=== PATIENT | male | born 1960 | race Caucasian/White ===

== ENCOUNTER → 2016-03-26 | Outpatient (CLI) | payer OTHER ==
--- NOTE | 2016-03-26 09:55 | CT ---
EXAMINATION TYPE: CT sinus wo con DATE OF EXAM: 03/26/2016 9:37 AM COMPARISON: NONE HISTORY: 55-year-old male complains of chronic sinus congestion and drainage. TECHNIQUE: Contiguous axial scanning of the paranasal sinuses without IV contrast. Coronal reconstruc tions performed. CT DLP: 635 mGycm Automated exposure control for dose reduction was used. FINDINGS: There is severe mucosal thickening within the left maxillary sinus and mild to moderate within the ri ght maxillary sinus with a polyp or mucosal retention cyst along the medial floor of the right maxill manuel sinus. Additional mild to moderate mucosal thickening involving the anterior ethmoid air cells on both sides and mild within the right sphenoid sinus. The frontal sinuses are pneumatized. There is no air-fluid level. Reactive cassandra- osteogenesis is not seen. There is no destruction of the osseous hernández of the paranasal sinuses. There is mucosal thickening in the region of the left osteomeatal complex. The right osteomeatal comp lexes is patent. Rightward nasal septal deviation. The imaged brain, sella, skull base and orbits are normal in appearance. Visualized mastoid air cells and middle ear cavities are well pneumatized. IMPRESSION: 1. MODERATE TO SEVERE CHRONIC LEFT MAXILLARY SINUS DISEASE. 2. ADDITIONAL VARIABLE MILD TO MODERATE RIGHT MAXILLARY, RIGHT SPHENOID, AND ANTERIOR ETHMOID SINUS D ISEASE. 3. RIGHTWARD NASAL SEPTAL DEVIATION.
== END | disposition home or self-care (01) ==
LOC: RADCTMAIN 09:20
PROVIDERS: ATTEND Otolaryngology
DX: J32.0 Chronic maxillary sinusitis (principal); J32.3 Chronic sphenoidal sinusitis; J32.2 Chronic ethmoidal sinusitis; J34.2 Deviated nasal septum
CPT/HCPCS: 70486

== ENCOUNTER 2016-04-29 10:29 | Day surgery (SDC) | payer OTHER ==
[2016-04-27 10:33] VITALS: BMI 23.1
[~2016-04-29 10:29] MED LIST: DEXAMETHASONE SOD PHOSPHATE 10 MG/ML 1 ML VIAL IV ONE; DEXAMETHASONE SOD PHOSPHATE 4 MG/ML 1 ML VIAL IV ONE; FAMOTIDINE 20 MG/2 ML VIAL IV ONE; HYDROmorphone 1 MG/ML 1 ML SYRINGE IVP PRN; LACTATED RINGERS 1,000 ML IV SCH; LIDOCAINE 1% 20 ML VIAL (10MG/ML) FOR IV START INTRADERMA PRN; ONDANSETRON 4 MG/2 ML VIAL IVP ONE; SCOPOLAMINE 1.5MG/72HR PATCH TRANSDERM ONE; ceFAZolin 1,000 MG in DEXTROSE/WATER 1 50ML.BAG IV ONE
[2016-04-29 11:32] VITALS: RESP 16; TEMP 97.5
[2016-04-29] MEDS: OXYMETAZOLINE 0.05% NASL SPRAY 15 ML NASAL ONE ×5 (11:34→11:53)
[2016-04-29] MEDS ORDERED: fentaNYL (PF) 50 MCG/ML 2 ML AMP ONE (13:16)
[2016-04-29] MEDS ORDERED: LIDOCAINE 1% INJ 10MG/ML (20 ML MDV) ONE (13:16)
[2016-04-29] MEDS ORDERED: PHENYLEPHRINE-0.9% NACL SYG 1 MG/10 ML SYRINGE ONE (13:16)
[2016-04-29] MEDS ORDERED: PROPOFOL 10 MG/ML 20 ML VIAL IV ONE (13:16)
[2016-04-29] MEDS ORDERED: MIDAZOLAM 2 MG/2 ML VIAL ONE (13:16)
[2016-04-29] MEDS ORDERED: SUCCINYLCHOLINE CHLORIDE 100 MG/5 ML SYR IV ONE (13:16)
[2016-04-29] MEDS ORDERED: LIDOCAINE 1%-EPI 1:100,000 20 ML VIAL SUBMUCOSAL ONE (13:45)
--- NOTE | 2016-04-29 14:47 | P.OP ---
Date of Procedure: 04/29/16 Preoperative Diagnosis: Deviated nasal septum Inferior turbinate hypertrophy Chronic sinusitis Postoperative Diagnosis: Same Procedure(s) Performed: Septoplasty Outfracture and submucous resection of the inferior turbinates Bilateral endoscopic sinus surgery including bilateral maxillary antrostomy with removal of tissue from the left maxillary sinus, bilateral anterior and posterior ethmoidectomy, balloon sinus plasty of the bilateral frontal and bilateral sphenoid sinuses with exploration Anesthesia: SOULEYMANE Surgeon: Rachid Contreras Estimated Blood Loss (ml): 20 Pathology: other (Nasal septal bone and cartilage and sinus contents) Condition: stable Disposition: PACU Indications for Procedure: Is a 55-year-old white male who has had difficulties with chronic and recurrent sinusitis as well as nasal airway obstruction and congestion as well as postnasal drainage. Computed tomography scan showed chronic sinusitis diffusely but most significantly in the left maxillary sinus, obstruction the ostiomeatal complexes bilaterally, mucosal thickening in the maxillary sinuses, ethmoid sinuses frontal and sphenoid sinuses Operative Findings: See above in indications, also polyps noted throughout the ethmoid cavities bilaterally Description of Procedure: The patient was brought in the operative suite and placed in a supine position. The patient underwent induction of general anesthesia with oral endotracheal intubation without difficulty. The patient was prepped and draped in usual aseptic fashion. 1% lidocaine with 1 100,000 epinephrine was infused submucosally both sides nasal septum. While this taking vasoconstrictive effect the inferior turbinates were infractured with Adair elevator partial submucous resection inferior turbinates with Coblation device ablating a portion of the soft tissue and the submucosa. The were then outfractured with Adair elevator. Orbits were in the operating field for monitoring throughout the case and computed tomography scan within the computer screen throughout the case also for monitoring. 1% lidocaine with 1 100,000 epinephrine was infused on the lateral nasal wall and anterior tips the middle turbinates also. A left hemitransfixion incision was made with the mucoperichondrial mucoperiosteal flap on left elevated. Bony cartilaginous junction was disarticulated and a mucoperiosteal flap on the right was elevated. Bony nasal septal deformities were removed Bubba forceps. An inferior cartilaginous strip was removed leaving a full 1.5 cm caudal strut. Checking intranasally this corrected the nasal septal deformity and the hemitransfixion incision was closed running 4-0 chromic suture. All 0 endoscopic evaluation performed bilaterally. Beginning on the left the middle turbinate was medialized with the Quinby elevator. Maxillary antrostomy was located with a ballpoint probe and infundibulotomy was performed followed by uncinectomy. Maxillary antrostomy was enlarged at the expense of the anterior posterior fontanelle taking care anteriorly not to injure the lacrimal bone. Small polyps removed from the maxillary sinus usin 30 endoscope and giraffe forceps. Anterior and posterior ethmoidectomy then performed with the microdebrider 4 mm blade from anterior posterior to the level skull base. The [employer] retargeting light guided balloon sinus plasty instrumentation was then used to perform balloon sinus plasty of the left frontal and left sphenoid sinus with exploration of the sinuses endoscopically. Once this was completed attention was turned to the right where the procedures were followed as they had left including medialization middle turbinate infundibulotomy uncinectomy maxillary antrostomy anterior posterior ethmoidectomy and sinus plasty with exploration of the frontal and sphenoid sinus. Once this was completed a combination of standard and firm nasal pore nasal dressings were placed in the middle meatus under direct visualization. Bilateral Boyd airway splint coated bacitracin ointment were placed in nasal cavities and sutured transseptal 4-0 nylon suture. Patient was then allowed to emerge from general anesthesia having tolerated procedure well with a 70 operative suite and transferred postoperative recovery area in satisfactory condition
[2016-04-29 16:11] VITALS: PULSE 71
[2016-04-29 16:20] VITALS: BP 133/81
== END 2016-04-29 16:41 | disposition home or self-care (01) ==
LOC: OR 10:29
PROVIDERS: ATTEND Otolaryngology
DX: J34.2 Deviated nasal septum (principal); J32.4 Chronic pansinusitis; J34.3 Hypertrophy of nasal turbinates; Z72.0 Tobacco use; K21.9 Gastro-esophageal reflux disease without esophagitis; I25.10 Atherosclerotic heart disease of native coronary artery without angina pectoris; J44.9 Chronic obstructive pulmonary disease, unspecified; E78.5 Hyperlipidemia, unspecified; J30.1 Allergic rhinitis due to pollen; J30.81 Allergic rhinitis due to animal (cat) (dog) hair and dander; I25.2 Old myocardial infarction; Z86.73 Personal history of transient ischemic attack (TIA), and cerebral infarction without residual deficits; Z95.5 Presence of coronary angioplasty implant and graft; Z79.82 Long term (current) use of aspirin; Z79.899 Other long term (current) drug therapy
CPT/HCPCS: 30520; 30140; 31255; 31267; 88305; 88300; C1726; J2250; J1100; J2405; J2001; J3010; J0690; J2370; J0330; J2704

== ENCOUNTER → 2017-07-01 | Outpatient (CLI) | payer OTHER ==
[2017-07-01 10:47] LABS: Glucose 108 mg/dL (74-99)
[2017-07-01 11:05] LABS: T4, Free (Free Thyroxine) 2.12 ng/dL (0.78-2.19)
[2017-07-01 17:03] LABS: ACTH 30.9 pg/mL (0.00-45.99); Vitamin D 25 Hydroxy 15.5 ng/mL (30.0-100.0)
== END | disposition home or self-care (01) ==
LOC: LABWHC1 07:46
PROVIDERS: ATTEND Internal Medicine Endocrinology, Diabetes & Metabolism
DX: R53.83 Other fatigue (principal); E05.90 Thyrotoxicosis, unspecified without thyrotoxic crisis or storm
CPT/HCPCS: 36415; 82024; 82306; 82533; 82607; 82947; 84403; 84439; 84443; 84445; 84480

== ENCOUNTER → 2017-08-17 | Outpatient (CLI) | payer OTHER ==
--- NOTE | 2017-08-17 14:19 | XR ---
Right leg HISTORY: Contusion, bruising and swelling 2 views of the right leg submitted on 4 images Bone mineralization, joint spaces and alignment are maintained. Arthropathy noted at the ankle joint. There is a plantar calcaneal spur. Soft tissue swelling and vascular calcifications are noted. IMPRESSION: No radiographically apparent fracture or dislocation.
== END | disposition home or self-care (01) ==
LOC: RADXRMAIN 10:32
PROVIDERS: ATTEND Emergency Medicine
DX: S80.11XS Contusion of right lower leg, sequela (principal)

== ENCOUNTER → 2017-08-25 | Outpatient (CLI) | payer OTHER ==
--- NOTE | 2017-08-26 10:03 | NM ---
EXAMINATION TYPE: NM thyroid image w uptake DATE OF EXAM: 08/26/2017 COMPARISON: NONE HISTORY: Subclinical hyperthyroidism, E05.90 TECHNIQUE: Thyroid iodine uptake is calculated and images performed after the oral administration of 311 uCi I-123 uCi 1-123 Capsule. FINDINGS: There is increased distribution of activity throughout the gland. The 4 hour iodine uptake is calculated at 20.2% (normal range 8-14%). The 24-hour iodine uptake is calculated at 45.3% (rosa isela l range 15-35%). IMPRESSION: Findings compatible with thyroiditis, consider Graves' disease.
== END | disposition home or self-care (01) ==
LOC: RADNMMAIN 09:02
PROVIDERS: ATTEND Internal Medicine Endocrinology, Diabetes & Metabolism
DX: E05.90 Thyrotoxicosis, unspecified without thyrotoxic crisis or storm (principal)
CPT/HCPCS: 78014

== ENCOUNTER → 2017-09-11 | Outpatient (CLI) | payer OTHER ==
[2017-09-11 11:38] LABS: T4, Free (Free Thyroxine) 1.66 ng/dL (0.78-2.19)
== END | disposition home or self-care (01) ==
LOC: LABWHC1 10:49
PROVIDERS: ATTEND Internal Medicine Endocrinology, Diabetes & Metabolism
DX: E05.90 Thyrotoxicosis, unspecified without thyrotoxic crisis or storm (principal); R53.83 Other fatigue
CPT/HCPCS: 36415; 84439; 84443; 84481

== ENCOUNTER → 2017-09-13 | Outpatient (CLI) | payer OTHER ==
[2017-09-13 10:40] LABS: HCT 42.8 % (39.0-53.0); HGB 13.9 gm/dL (13.0-17.5); MCH 32.5 pg (25.0-35.0); MCHC 32.5 g/dL (31.0-37.0); MCV 99.7 fL (80.0-100.0); Macrocytosis Slight; Mean Platelet Volume 6.6; Platelet Count 229 k/uL (150-450); RBC 4.29 m/uL (4.30-5.90); RDW 15.1 % (11.5-15.5); WBC 5.7 k/uL (3.8-10.6)
[2017-09-13 10:52] LABS: ALT 30 U/L (21-72); AST 21 U/L (17-59); Alkaline Phosphatase 86 U/L (38-126); Anion Gap 9 mmol/L; Blood Urea Nitrogen 20 mg/dL (9-20); Calcium 9.9 mg/dL (8.4-10.2); Carbon Dioxide 25 mmol/L (22-30); Chloride 107 mmol/L (98-107); Glucose 95 mg/dL (74-99); Potassium 4.1 mmol/L (3.5-5.1); Sodium 141 mmol/L (137-145); Total Bilirubin 0.2 mg/dL (0.2-1.3); Total Protein 6.7 g/dL (6.3-8.2)
== END | disposition home or self-care (01) ==
LOC: LABWHC1 10:19
PROVIDERS: ATTEND Internal Medicine Endocrinology, Diabetes & Metabolism
DX: E05.90 Thyrotoxicosis, unspecified without thyrotoxic crisis or storm (principal)
CPT/HCPCS: 36415; 80053; 85027

== ENCOUNTER 2018-06-04 09:45 | Emergency (ER) | payer OTHER ==
[2018-06-04 09:51] VITALS: RESP 18; TEMP 98
--- NOTE | 2018-06-04 10:36 | ED ---
Fall HPI - General Chief Complaint: Fall Stated Complaint: Fall, back pain-[facility]- Time Seen by Provider: 06/04/18 09:58 Source: patient, RN notes reviewed Mode of arrival: ambulatory Limitations: no limitations - History of Present Illness Initial Comments: 57-year-old male presents emergency Department with chief complaint of fall, right rib pain. Patient states that he was pulling on something states that he let go causing the fall back into her volar. Patient states that he felt a crack in his pain as right lower ribs. Denies any head injury no loss conscious. Patient states his pain with deep inspiration and minimal shortness of breath. Patient denies any extremity injury denies neck, midline back pain. - Related Data Home Medications Medication Instructions Recorded Confirmed Dextroamphetamine/Amphetamine 20 mg PO DAILY 08/16/13 06/04/18 [Adderall] Aspirin 81 mg PO DAILY 04/27/16 06/04/18 Esomeprazole Magnesium [NexIUM] 20 mg PO DAILY 04/27/16 06/04/18 Levocetirizine Dihydrochloride 5 mg PO DAILY 01/03/17 06/04/18 [Xyzal] Barton-3 Fatty Acids/Fish Oil [Fish 1 cap PO DAILY 06/04/18 06/04/18 Oil 1,000 mg Softgel] Potassium Gluconate 99 mg PO DAILY 06/04/18 06/04/18 Previous Rx's Medication Instructions Recorded Ibuprofen [Motrin] 600 mg PO Q8HR PRN #30 tab 06/04/18 Allergies Allergy/AdvReac Type Severity Reaction Status Date / Time cat dander Allergy Unknown Verified 06/04/18 10:01 Review of Systems ROS Statement: Those systems with pertinent positive or pertinent negative responses have been documented in the HPI. ROS Other: All systems not noted in ROS Statement are negative. Past Medical History Past Medical History: COPD, CVA/TIA, GERD/Reflux, Hyperlipidemia, Myocardial Infarction ([place]) Additional Past Medical History / Comment(s): TIA 2014-no residual effects Last Myocardial Infarction Date:: 2013 History of Any Multi-Drug Resistant Organisms: None Reported Past Surgical History: Heart Catheterization With Stent, Orthopedic Surgery Additional Past Surgical History / Comment(s): left shoulder surgery Past Anesthesia/Blood Transfusion Reactions: No Reported Reaction Date of Last Stent Placement:: 2013 Past Psychological History: No Psychological Hx Reported Smoking Status: Current every day smoker Past Alcohol Use History: Daily Past Drug Use History: None Reported - Past Family History Mother Family Medical History: No Reported History General Exam Limitations: no limitations General appearance: alert, in no apparent distress Head exam: Present: atraumatic, normocephalic, normal inspection Neck exam: Present: normal inspection, full ROM. Absent: tenderness, meningismus, lymphadenopathy Respiratory exam: Present: normal lung sounds bilaterally, chest wall tenderness (Mild right posterior lower ribs). Absent: respiratory distress, wheezes, rales, rhonchi, stridor Cardiovascular Exam: Present: regular rate, normal rhythm, normal heart sounds. Absent: systolic murmur, diastolic murmur, rubs, gallop, clicks GI/Abdominal exam: Present: soft, normal bowel sounds. Absent: distended, tenderness, guarding, rebound, rigid Extremities exam: Present: normal inspection, full ROM, normal capillary refill. Absent: tenderness, pedal edema, joint swelling, calf tenderness Back exam: Present: full ROM. Absent: tenderness, paraspinal tenderness, vertebral tenderness Neurological exam: Present: alert, oriented X3, CN II-XII intact, reflexes normal. Absent: motor sensory deficit Skin exam: Present: warm, dry, intact, normal color. Absent: rash Course Vital Signs 06/04/18 09:47 Temperature 98 F Pulse Rate 79 Respiratory 18 Rate Blood Pressure 153/86 O2 Sat by Pulse 99 Oximetry Medical Decision Making - Medical Decision Making 57-year-old male present emergency from for fall, lower rib pain. Patient had rib series x-rays which shows evidence of rib fracture #11. Patient will be discharged with pain medication and close follow-up, we did discuss incentive spirometry. Disposition Clinical Impression: Fall, Right rib fracture Disposition: HOME SELF-CARE Condition: Stable Instructions (If sedation given, give patient instructions): Rib Fracture (ED) Additional Instructions: Please return to the Emergency Department if symptoms worsen or any other concerns. Prescriptions: Ibuprofen [Motrin] 600 mg PO Q8HR PRN #30 tab PRN Reason: Pain Is patient prescribed a controlled substance at d/c from ED?: No Referrals: Bernabe Lopez DO [Primary Care Provider] - 1-2 days Time of Disposition: 10:56
--- NOTE | 2018-06-04 10:51 | XR ---
EXAMINATION TYPE: XR ribs RT w pa chest xray , 5 VIEWS DATE OF EXAM ORDERED: 06/04/2018 HISTORY: Pain. COMPARISON: Previous study dated 08/16/2013. FINDINGS: The lungs remain clear. I do not see evidence of pneumothorax. The heart is not enlarged. No displaced rib fracture is seen. IMPRESSION: 1. NO ACTIVE CARDIOTHORACIC ABNORMALITY. 2. I DO NOT IDENTIFY A DISPLACED RIB FRACTURE AT THIS TIME.
[2018-06-04] MEDS ORDERED: ACET/COD 300 MG/30 MG STARTER PACK 6 TAB BTL PO STA (10:52)
[2018-06-04 12:00] VITALS: BP 142/78; PULSE 76
== END 2018-06-04 11:55 | disposition home or self-care (01) ==
LOC: EC 09:45
DX: S22.31XA Fracture of one rib, right side, initial encounter for closed fracture (principal); K21.9 Gastro-esophageal reflux disease without esophagitis; I25.2 Old myocardial infarction; F17.200 Nicotine dependence, unspecified, uncomplicated; Z95.5 Presence of coronary angioplasty implant and graft; Z86.73 Personal history of transient ischemic attack (TIA), and cerebral infarction without residual deficits; Z79.82 Long term (current) use of aspirin; Z79.899 Other long term (current) drug therapy; Z91.048 Other nonmedicinal substance allergy status; W01.0XXA Fall on same level from slipping, tripping and stumbling without subsequent striking against object, initial encounter; Y92.69 Other specified industrial and construction area as the place of occurrence of the external cause; Y99.0 Civilian activity done for income or pay
CPT/HCPCS: 99283

== ENCOUNTER → 2018-06-06 | Outpatient (CLI) | payer OTHER ==
--- NOTE | 2018-06-06 15:11 | XR ---
EXAMINATION TYPE: XR chest 2V DATE OF EXAM: 06/06/2018 COMPARISON: 06/04/2018 HISTORY: 57-year-old male right-sided lower lateral rib pain for 2 days TECHNIQUE: PA and lateral views FINDINGS: The cardiomediastinal silhouette, aorta, and pulmonary vasculature are within normal limits. Mild hyp erinflation. Lungs and pleural spaces are clear. IMPRESSION: 1. Mild hyperinflation which may reflect underlying emphysema. No acute cardiopulmonary process. 2. Retrospective review of the patient's 06/04/2018 chest x-ray and right rib series shows a nondispla pedro pablo fracture of the right lateral, posterolateral 11th rib. An arrow has been placed on the image.
== END | disposition home or self-care (01) ==
LOC: RADXRMAIN 14:39
PROVIDERS: ATTEND Emergency Medicine
DX: S22.31XA Fracture of one rib, right side, initial encounter for closed fracture (principal); R91.8 Other nonspecific abnormal finding of lung field
CPT/HCPCS: 71046

== ENCOUNTER → 2021-10-20 | Outpatient (CLI) | payer BC ==
--- NOTE | 2021-10-20 10:49 | XR ---
EXAMINATION TYPE: XR chest 2V DATE OF EXAM: 10/20/2021 COMPARISON: Chest x-ray dated 06/06/2018 HISTORY: Pneumonia recently TECHNIQUE: Frontal and lateral views of the chest are obtained. FINDINGS: There is no focal air space opacity, pleural effusion, or pneumothorax seen. The cardiac silhouette size is within normal limits. The osseous structures are intact, there is thoracic spond ylosis. Aorta is dense. Prominent lung volumes may be indicative of underlying COPD. There are sawant ry artery calcifications possibly stent. There is relative flattening of hemidiaphragms, increased re trosternal airspace. IMPRESSION: No acute cardiopulmonary process.
== END | disposition home or self-care (01) ==
LOC: RADXRMAIN 09:59
PROVIDERS: ATTEND Family Medicine
DX: J18.9 Pneumonia, unspecified organism (principal)
CPT/HCPCS: 71046

== ENCOUNTER 2022-02-08 15:06 | Emergency (ER) | payer BC, OTHER ==
[2022-02-08 15:48] VITALS: BP 181/92; PULSE 75; RESP 20; TEMP 98.1
--- NOTE | 2022-02-08 16:28 | ED ---
Lower Extremity Injury HPI - General Chief Complaint: Extremity Injury, Lower Stated Complaint: lt knee injury/cut on head Time Seen by Provider: 02/08/22 16:05 Source: patient, RN notes reviewed Mode of arrival: ambulatory Limitations: no limitations - History of Present Illness Initial Comments: This is a pleasant 61-year-old male tripped over a bowling ball on Wednesday night and landed on his left knee. Patient complaining of pain to the knee. Patient is able to ambulate with an antalgic gait. Denies any hip or ankle pain. No break in skin integrity. Patient did bump his head Kavin night and has an abrasion to his frontal scalp. No loss of consciousness, no blood thinners. No nausea or vomiting. Note that it's been almost 44 hours since that injury. No headache, no fever or chills, no changes in vision or hearing, no sore throat or difficulty with speech, no neck pain, no chest pain or shortness of breath, no abdominal pain, no nausea or vomiting, no changes in urination or bowel movements, no numbness or tingling, no skin rashes or lesions. Past medical, surgical, social, and family history reviewed. - Related Data Home Medications Medication Instructions Recorded Confirmed Dextroamphetamine/Amphetamine 20 mg PO DAILY 08/16/13 06/04/18 [Adderall] Aspirin 81 mg PO DAILY 04/27/16 06/04/18 Esomeprazole Magnesium [NexIUM] 20 mg PO DAILY 04/27/16 06/04/18 Levocetirizine Dihydrochloride 5 mg PO DAILY 01/03/17 06/04/18 [Xyzal] [place]-3 Fatty Acids/Fish Oil [Fish 1 cap PO DAILY 06/04/18 06/04/18 Oil 1,000 mg Softgel] Potassium Gluconate [Potassium 99 mg PO DAILY 06/04/18 06/04/18 Gluconate ER] Previous Rx's Medication Instructions Recorded Ibuprofen [Motrin] 600 mg PO Q8HR PRN #30 tab 06/04/18 Acetaminophen Tab [Tylenol Tab] 500 mg PO Q6H PRN #24 tablet 02/08/22 Naproxen [Naprosyn] 375 mg PO Q12HR PRN #20 tablet 02/08/22 Allergies Allergy/AdvReac Type Severity Reaction Status Date / Time cat dander Allergy Unknown Verified 02/08/22 15:48 Review of Systems ROS Statement: Those systems with pertinent positive or pertinent negative responses have been documented in the HPI. ROS Other: All systems not noted in ROS Statement are negative. Past Medical History Past Medical History: COPD, CVA/TIA, GERD/Reflux, Hyperlipidemia, Myocardial Infarction ([place]) Additional Past Medical History / Comment(s): TIA 2014-no residual effects Last Myocardial Infarction Date:: 2013 History of Any Multi-Drug Resistant Organisms: None Reported Past Surgical History: Heart Catheterization With Stent, Orthopedic Surgery Additional Past Surgical History / Comment(s): left shoulder surgery Past Anesthesia/Blood Transfusion Reactions: No Reported Reaction Date of Last Stent Placement:: 2013 Past Psychological History: No Psychological Hx Reported Smoking Status: Current every day smoker Past Alcohol Use History: Daily Past Drug Use History: None Reported - Past Family History Mother Family Medical History: No Reported History General Exam Limitations: no limitations General appearance: alert, in no apparent distress Head exam: Present: other (Superficial abrasion to the frontal scalp. No crepitus, no step-off, normocephalic atraumatic otherwise.) Eye exam: Present: normal appearance, PERRL, EOMI. Absent: scleral icterus, conjunctival injection, periorbital swelling ENT exam: Present: normal exam, normal oropharynx. Absent: mucous membranes dry Neck exam: Present: normal inspection, full ROM. Absent: tenderness, meningismus, lymphadenopathy Respiratory exam: Present: normal lung sounds bilaterally. Absent: respiratory distress, wheezes, rales, rhonchi, stridor Cardiovascular Exam: Present: regular rate, normal rhythm, normal heart sounds. Absent: systolic murmur, diastolic murmur, rubs, gallop, clicks Left Hip exam: Present: normal inspection, full ROM. Absent: tenderness, swelling Upper Leg exam: Present: normal inspection. Absent: tenderness, swelling, abrasion, laceration, ecchymosis, deformity Knee exam: Present: full ROM (With pain), tenderness. Absent: swelling, abrasion, laceration, ecchymosis, deformity, crepitus, dislocation, erythema, effusion Lower Leg exam: Present: normal inspection. Absent: tenderness, swelling, abrasion Ankle exam: Present: normal inspection, full ROM. Absent: tenderness, swelling Neurovascular tendon exam: Present: no vascular compromise. Absent: pulse deficit, abnormal cap refill, motor deficit, sensory deficit, tendon deficit, extremity cold to touch Gait: antalgic Course Vital Signs 02/08/22 15:44 Temperature 98.1 F Pulse Rate 75 Respiratory 20 Rate Blood Pressure 181/92 O2 Sat by Pulse 97 Oximetry Medical Decision Making - Medical Decision Making Patient presents with isolated injury to his left knee. Osteoarthritic change noted. We'll treat with a knee immobilizer conservative therapy. Orthopedic follow-up. Patient also had an abrasion to his scalp which did not need any repair. Did review head injury instructions with the patient. Although has been 2 days since the injury. She will intact. Review of systems. Tetanus up-to-date. Patient was told to return to the ER for any signs or symptoms worsen. Told to return immediately if any other problems arise. All questions answered. Treatment plan discussed. Patient in agreement Every effort has been made to ensure accuracy of this dictation. However, due to the limitations of electronic medical records and dictation devices, errors in charting still occur. Supervising Dr. Verma - Radiology Data Radiology results: report reviewed, image reviewed Plain film x-ray of left knee read by me reveals no acute pathology. No dislocation. No fracture. No soft tissue changes. Patient does have osteoarthritic change noted. I did review the radiologist's interpretation. Concur with the report. Disposition Clinical Impression: Contusion of left knee, Left knee pain, Scalp abrasion, Elevated blood pressure reading Disposition: HOME SELF-CARE Condition: Good Instructions (If sedation given, give patient instructions): Knee Pain (ED), Knee Immobilizer (ED), Hypertension (ED), Abrasion (ED) Additional Instructions: Use a knee immobilizer as directed. You can take it on and off. Elevate the left leg when possible. Apply ice 20 minutes on and off for times daily. Call tomorrow morning to set up follow-up appointment with the orthopedic physician. Follow-up with your regular physician as directed. Return to the ER immediately if any symptoms worsen, new symptoms arise, or any other problems develop. Prescriptions: Naproxen [Naprosyn] 375 mg PO Q12HR PRN #20 tablet PRN Reason: Pain Acetaminophen Tab [Tylenol Tab] 500 mg PO Q6H PRN #24 tablet PRN Reason: Pain Is patient prescribed a controlled substance at d/c from ED?: No Referrals: Lady Coughlin DO [Doctor of Osteopathic Medicine] - 02/11/22 Time of Disposition: 17:05
--- NOTE | 2022-02-08 16:48 | XR ---
EXAMINATION TYPE: XR knee complete LT DATE OF EXAM: 02/08/2022 COMPARISON: NONE HISTORY: Knee pain TECHNIQUE: 3 views FINDINGS: There is soft tissue swelling anteriorly. There is small knee joint effusion. There is vasc ular calcification. No fracture seen. There is minor spurring of the medial tibial condyle. IMPRESSION: Mild osteoarthritis. Soft tissue swelling and joint effusion. No fracture seen.
[2022-02-08] MEDS ORDERED: DIPH,PERTUS(ACELL)TETVAC-LF 0.5 ML VIAL IM ONE (17:10)
== END 2022-02-08 17:26 | disposition home or self-care (01) ==
LOC: EC 15:06
DX: S80.02XA Contusion of left knee, initial encounter (principal); S00.01XA Abrasion of scalp, initial encounter; Z23 Encounter for immunization; I10 Essential (primary) hypertension; J44.9 Chronic obstructive pulmonary disease, unspecified; K21.9 Gastro-esophageal reflux disease without esophagitis; E78.5 Hyperlipidemia, unspecified; I25.2 Old myocardial infarction; G45.9 Transient cerebral ischemic attack, unspecified; J30.81 Allergic rhinitis due to animal (cat) (dog) hair and dander; F17.200 Nicotine dependence, unspecified, uncomplicated; Z79.82 Long term (current) use of aspirin; Z79.899 Other long term (current) drug therapy; Z79.83 Long term (current) use of bisphosphonates; W18.40XA Slipping, tripping and stumbling without falling, unspecified, initial encounter; Y93.54 Activity, bowling
CPT/HCPCS: 90471; 90715; 99283

== ENCOUNTER → 2022-08-07 | Outpatient (CLI) | payer BC ==
[2022-08-07 11:13] LABS: T4, Free (Free Thyroxine) 1.45 ng/dL (0.800-1.800)
== END | disposition home or self-care (01) ==
LOC: LABWHC1 06:57
PROVIDERS: ATTEND Internal Medicine Endocrinology, Diabetes & Metabolism
DX: E05.90 Thyrotoxicosis, unspecified without thyrotoxic crisis or storm (principal)
CPT/HCPCS: 36415; 84439; 84443; 84445; 84480

== ENCOUNTER 2023-01-17 16:57 | Emergency (ER) | payer BC ==
[2023-01-17] MEDS ORDERED: SODIUM CHLORIDE 0.9% 1,000 ML IV STA (17:28)
[2023-01-17] MEDS ORDERED: KETOROLAC 15 MG/ML 1 ML VIAL IVP STA (17:41)
--- NOTE | 2023-01-17 17:49 | ED ---
General Adult HPI - General Chief complaint: Abdominal Pain Stated complaint: Kidney stones Time Seen by Provider: 01/17/23 17:27 Source: patient Mode of arrival: ambulatory - History of Present Illness Initial comments: Dictation was produced using [employer] dictation software. please excuse any grammatical, word or spelling errors. Chief Complaint: 62-year-old male presents emergency Department with right flank pain History of Present Illness: Patient 62-year-old male presents emergency Department with right flank pain. Patient states that he has history of kidney stones however has not seen a urologist for it. He has not had any imaging for kidney stones. States that he has right-sided flank pain and right lower back pain for the last 7 days. Denies any nausea. No hematuria. Denies that his pain is colicky and seems to be worse more with movement. The ROS documented in this emergency department record has been reviewed and confirmed by me. Those systems with pertinent positive or negative responses have been documented in the HPI. All other systems are other negative and/or noncontributory. - Related Data Home Medications Medication Instructions Recorded Confirmed Dextroamphetamine/Amphetamine 20 mg PO DAILY 08/16/13 06/04/18 [Adderall] Aspirin 81 mg PO DAILY 04/27/16 06/04/18 Esomeprazole Magnesium [NexIUM] 20 mg PO DAILY 04/27/16 06/04/18 Levocetirizine Dihydrochloride 5 mg PO DAILY 01/03/17 06/04/18 [Xyzal] [place]-3 Fatty Acids/Fish Oil [Fish 1 cap PO DAILY 06/04/18 06/04/18 Oil 1,000 mg Softgel] Potassium Gluconate [Potassium 99 mg PO DAILY 06/04/18 06/04/18 Gluconate ER] Previous Rx's Medication Instructions Recorded Ibuprofen [Motrin] 600 mg PO Q8HR PRN #30 tab 06/04/18 Acetaminophen Tab [Tylenol Tab] 500 mg PO Q6H PRN #24 tablet 02/08/22 Naproxen [Naprosyn] 375 mg PO Q12HR PRN #20 tablet 02/08/22 Allergies Allergy/AdvReac Type Severity Reaction Status Date / Time cat dander Allergy Unknown Verified 01/17/23 17:15 Review of Systems ROS Statement: Those systems with pertinent positive or pertinent negative responses have been documented in the HPI. ROS Other: All systems not noted in ROS Statement are negative. Past Medical History Past Medical History: COPD, CVA/TIA, GERD/Reflux, Hyperlipidemia, Myocardial Infarction ([place]) Additional Past Medical History / Comment(s): TIA 2014-no residual effects Last Myocardial Infarction Date:: 2013 History of Any Multi-Drug Resistant Organisms: None Reported Past Surgical History: Heart Catheterization With Stent, Orthopedic Surgery Additional Past Surgical History / Comment(s): left shoulder surgery Past Anesthesia/Blood Transfusion Reactions: No Reported Reaction Date of Last Stent Placement:: 2013 Past Psychological History: No Psychological Hx Reported Smoking Status: Current every day smoker Past Alcohol Use History: Daily Past Drug Use History: None Reported - Past Family History Mother Family Medical History: No Reported History General Exam - General Exam Comments Initial Comments: PHYSICAL EXAM: General Impression: Alert and oriented x3, not in acute distress HEENT: Normocephalic atraumatic, extra-ocular movements intact, pupils equal and reactive to light bilaterally, mucous membranes moist. Cardiovascular: Heart regular rate and rhythm Chest: Able to complete full sentences, no retractions, no tachypnea Abdomen: abdomen soft, non-tender, non-distended, no organomegaly Musculoskeletal: Pulses present and equal in all extremities, no peripheral edema Motor: no focal deficits noted Neurological: CN II-XII grossly intact, no focal motor or sensory deficits noted Skin: Intact with no visualized rashes Psych: Normal affect and mood Course Vital Signs 01/17/23 01/17/23 01/17/23 17:12 18:02 18:07 Temperature 98.3 F Pulse Rate 64 55 L Respiratory 18 20 Rate Blood Pressure 210/98 216/107 O2 Sat by Pulse 98 99 Oximetry Medical Decision Making - Medical Decision Making Was pt. sent in by a medical professional or institution (, PA, TOY STUFFER, urgent care, hospital, or longterm...) When possible be specific @ -No Did you speak to anyone other than the patient for history (EMS, parent, family, police, friend...)? What history was obtained from this source @ -No Did you review nursing and triage notes (agree or disagree)? Why? @ -I reviewed and agree with nursing and triage notes Were old charts reviewed (outside hosp., previous admission, EMS record, old EKG, old radiological studies, urgent care reports/EKG's, longterm records)? Report findings @ -No old charts were reviewed Differential Diagnosis (chest pain, altered mental status, abdominal pain women, abdominal pain men, vaginal bleeding, musculoskeletal, weakness, fever, dyspnea, syncope, headache, dizziness, GI bleed, back pain, seizure, CVA, palpatations, mental health)? @ -Differential Back Pain: Strain, zoster, cauda equina syndrome, epidural abscess, vertebral osteomyelitis, discitis, fracture, subluxation, disc herniation, DJD, spinal stenosis, dissection, AAA, pancreatitis, peptic ulcer disease, pyelonephritis, kidney stone, this is not meant to be an all-inclusive list. EKG interpreted by me (3pts min.). @ -None done X-rays interpreted by me (1pt min.). @ -None done CT interpreted by me (1pt min.). @ -CT of the abdomen and pelvis without contrast shows no nephrolithiasis U/S interpreted by me (1pt. min.). @ -None done What testing was considered but not performed or refused? (CT, X-rays, U/S, labs)? Why? @ -None What meds were considered but not given or refused? Why? @ -None Did you discuss the management of the patient with other professionals (professionals i.e. , PA, TOY STUFFER, lab, RT, psych nurse, social media sr strategy manager, clinical documentation developer, teacher, combatant diver officer, case loader operator)? Give summary @ -No Was smoking cessation discussed for >3mins.? @ -No Was critical care preformed (if so, how long)? @ -No Were there social determinants of health that impacted care today? How? (Homelessness, low income, unemployed, alcoholism, drug addiction, transportation, low edu. Level, literacy, decrease access to med. care, senior living, rehab)? @ -No Was there de-escalation of care discussed even if they declined (Discuss DNR or withdrawal of care, Hospice)? DNR status @ -No What co-morbidities impacted this encounter? (DM, HTN, Smoking, COPD, CAD, Cancer, CVA, ARF, Chemo, Hep., AIDS, mental health diagnosis, sleep apnea, morbid obesity)? @ -None Was patient admitted / discharged? Hospital course, mention meds given and route, prescriptions, significant lab abnormalities, going to OR and other pertinent info. @ -62-year-old male presents with back pain. His symptoms are very atypical for nephrolithiasis. Vital signs stable. Laboratory evaluation is unremarkable. Urinalysis shows no hematuria. Computed tomography scan shows no obstructing nephrolithiasis or any other acute processes. Patient given analgesics reevaluated at the bedside found to be within stable medical condition. Suspect that patient's back pain is from a musculoskeletal cause. Patient is well-appearing discharged told to follow-up with primary care doctor. Undiagnosed new problem with uncertain prognosis? @ -No Drug Therapy requiring intensive monitoring for toxicity (Heparin, Nitro, Insulin, Cardizem)? @ -No Were any procedures done? @ -No Diagnosis/symptom? Acute, or Chronic, or Acute on Chronic? Uncomplicated (without systemic symptoms) or Complicated (systemic symptoms)? @ -Back strain Side effects of treatment? @ -No Exacerbation, Progression, or Severe Exacerbation? @ -No Poses a threat to life or bodily function? How? (Chest pain, [place], [place], pneumonia, PE, COPD, DKA, ARF, appy, cholecystitis, CVA, Diverticulitis, Homicidal, Suicidal, threat to staff... and all critical care pts) @ -No - Lab Data Result diagrams: 01/17/23 17:55 01/17/23 17:55 Lab Results 01/17/23 01/17/23 01/17/23 Range/Units 17:55 17:55 19:45 WBC 4.8 (3.8-10.6) k/uL RBC 4.66 (4.30-5.90) m/uL Hgb 15.2 (13.0-17.5) gm/dL Hct 45.2 (39.0-53.0) % MCV 97.0 (80.0-100.0) fL MCH 32.5 (25.0-35.0) pg MCHC 33.5 (31.0-37.0) g/dL RDW 14.1 (11.5-15.5) % Plt Count 250 (150-450) k/uL MPV 7.5 Neutrophils % 47 % Lymphocytes % 39 % Monocytes % 8 % Eosinophils % 2 % Basophils % 0 % Neutrophils # 2.3 (1.3-7.7) k/uL Lymphocytes # 1.9 (1.0-4.8) k/uL Monocytes # 0.4 (0-1.0) k/uL Eosinophils # 0.1 (0-0.7) k/uL Basophils # 0.0 (0-0.2) k/uL Sodium 139 (137-145) mmol/L Potassium 4.3 (3.5-5.1) mmol/L Chloride 106 (98-107) mmol/L Carbon Dioxide 23 (22-30) mmol/L Anion Gap 10 mmol/L BUN 14 (9-20) mg/dL Creatinine 1.07 (0.66-1.25) mg/dL Est GFR (CKD-EPI)AfAm 85 (>60 ml/min/1.73 sqM) Est GFR (CKD-EPI)NonAf 74 (>60 ml/min/1.73 sqM) Glucose 88 (74-99) mg/dL Calcium 9.5 (8.4-10.2) mg/dL Urine Color Light Yellow Urine Appearance Clear (Clear) Urine pH 6.0 (5.0-8.0) Ur Specific [place] 1.014 (1.001-1.035) Urine Protein 1+ H (Negative) Urine Glucose (UA) Negative (Negative) Urine Ketones Negative (Negative) Urine Blood Negative (Negative) Urine Nitrite Negative (Negative) Urine Bilirubin Negative (Negative) Urine Urobilinogen <2.0 (<2.0) mg/dL Ur Leukocyte Esterase Negative (Negative) Urine RBC <1 (0-5) /hpf Ur Squamous Epith Cells <1 (0-4) /hpf Urine Bacteria Rare H (None) /hpf Urine Mucus Rare H (None) /hpf Disposition Clinical Impression: Back pain Disposition: HOME SELF-CARE Condition: Good Instructions (If sedation given, give patient instructions): Low Back Strain (ED) Is patient prescribed a controlled substance at d/c from ED?: No Referrals: Bernabe Lopez DO [Primary Care Provider] - 1-2 days Time of Disposition: 20:00
[2023-01-17 18:14] LABS: Basophils % (A) 0 %; Eosinophils # (A) 0.1 k/uL (0-0.7); Eosinophils % (A) 2 %; HCT 45.2 % (39.0-53.0); HGB 15.2 gm/dL (13.0-17.5); Lymphocytes # (A) 1.9 k/uL (1.0-4.8); Lymphocytes % (A) 39 %; MCH 32.5 pg (25.0-35.0); MCHC 33.5 g/dL (31.0-37.0); Mean Platelet Volume 7.5; Monocytes # (A) 0.4 k/uL (0-1.0); Monocytes % (A) 8 %; Neutrophils # (A) 2.3 k/uL (1.3-7.7); Neutrophils % (A) 47 %; Platelet Count 250 k/uL (150-450); RBC 4.66 m/uL (4.30-5.90); RDW 14.1 % (11.5-15.5); WBC 4.8 k/uL (3.8-10.6)
[2023-01-17 18:21] LABS: African American GFR (CKD) 85 (>60 ml/min/1.73 sqM); Anion Gap 10 mmol/L; Blood Urea Nitrogen 14 mg/dL (9-20); Calcium 9.5 mg/dL (8.4-10.2); Carbon Dioxide 23 mmol/L (22-30); Chloride 106 mmol/L (98-107); Glucose 88 mg/dL (74-99); Non-African American GFR(CKD) 74 (>60 ml/min/1.73 sqM); Sodium 139 mmol/L (137-145)
[2023-01-17 18:40] LABS: Potassium 4.3 mmol/L (3.5-5.1)
--- NOTE | 2023-01-17 18:49 | CT ---
EXAMINATION TYPE: CT abdomen pelvis wo con DATE OF EXAM: 01/17/2023 COMPARISON: None INDICATION: right flank pain DLP: 611.7 mGycm, Automated exposure control for dose reduction was used. CONTRAST: 0 mL of Isovue 300. Study performed without Oral Contrast TECHNIQUE: Axial images were obtained from above the diaphragm to the pubic rami in the axial plane a t 5 mm thick sections. Reconstructed images are reviewed on the computer in the coronal plane. FINDINGS: Limited CT sections are obtained the lung bases. The lung bases are clear. CT ABDOMEN: Liver: Normal Spleen: Normal Pancreas: Normal Adrenal glands: The adrenal glands are normal. Gallbladder: Normal Kidneys: No masses are evident. No hydronephrosis is present. No cysts are present. There is a 0.3 cm medial upper pole right kidney stone without hydronephrosis. Punctate posterior lateral mid right renal stone measures 0.2 cm. There is a punctate nonobstructing renal stone anterior midpole left ki dney measuring 0.3 cm. No ureteral stones are evident. Aorta: Vascular calcification is within the aorta. Inferior vena cava: Normal. CT PELVIS: Loops of bowel within the abdomen and pelvis are normal. This study is lateral contrast limiting pelvic evaluation. A few diverticular changes are present without acute diverticulitis. Appendix: Normal as visualized. Urinary bladder: Normal. Genitourinary structures: Prostate is prominent. Osseous structures: No suspicious lytic or sclerotic lesions. Degenerative changes are within the low er lumbar spine. IMPRESSION: 1. Scattered small nonobstructing renal stones present bilaterally discussed above. 2. Diverticulosis without acute diverticulitis. 3. Prostate hypertrophy.
[2023-01-17 20:22] LABS: Appearance,Urine Clear (Clear); Bacteria,Urine Rare /hpf; Bilirubin,Urine Negative (Negative); Blood,Urine Negative (Negative); Color,Urine Light Yellow; Glucose,Urine (UA) Negative (Negative); Ketones,Urine Negative (Negative); Leukocyte Esterase,Urine Negative (Negative); Mucus,Urine Rare /hpf; Nitrite,Urine Negative (Negative); Protein,Urine 1+ (Negative); RBC,Urine <1 /hpf (0-5); Specific Gravity,Urine 1.014 (1.001-1.035); Squamous Epithelial Cell,Urine <1 /hpf (0-4); Urobilinogen,Urine <2.0 mg/dL (<2.0)
[2023-01-17 21:33] VITALS: BP 206/133; PULSE 51; RESP 18; TEMP 98.6
== END 2023-01-17 21:18 | disposition home or self-care (01) ==
LOC: EC 16:57
DX: S39.012A Strain of muscle, fascia and tendon of lower back, initial encounter (principal); N20.0 Calculus of kidney; K57.90 Diverticulosis of intestine, part unspecified, without perforation or abscess without bleeding; N40.0 Benign prostatic hyperplasia without lower urinary tract symptoms; J44.9 Chronic obstructive pulmonary disease, unspecified; K21.9 Gastro-esophageal reflux disease without esophagitis; F17.200 Nicotine dependence, unspecified, uncomplicated; I25.2 Old myocardial infarction; Z79.82 Long term (current) use of aspirin; Z79.899 Other long term (current) drug therapy; Z91.09 Other allergy status, other than to drugs and biological substances; X58.XXXA Exposure to other specified factors, initial encounter
CPT/HCPCS: 36415; 80048; 85025; 81001; 74176; 99284; 96374; 96361 ×3; J1885

== ENCOUNTER 2023-05-05 20:48 | Emergency (ER) | payer BC ==
--- NOTE | 2023-05-05 20:59 | ED ---
Chest Pain HPI - General Source: patient Mode of arrival: ambulatory Limitations: no limitations <Mavis Smith - Last Filed: 05/05/23 20:58> - General Source: patient, RN notes reviewed, old records reviewed <Rey Medina - Last Filed: 05/06/23 03:16> - General Chief Complaint: Chest Pain Stated Complaint: Diarrhea chest tightness Time Seen by Provider: 05/05/23 20:58 - History of Present Illness Initial Comments: 62-year-old male presenting with chief complaint of chest tightness. He states that for the last 3 days he has had nausea vomiting and diarrhea, for the last 2 days he has had some chest tightness with cough and shortness of breath. (Mavis Smith) Patient is a 62-year-old male who presents emergency department complaining of intermittent chest tightness for multiple days as well as multiple days of diarrhea, nausea and nonbilious nonbloody emesis. Nonbloody diarrhea. Believes he feels ill like he has the flu. Has not been tested. Presents for further evaluation at this time. He denies any current chest pain. States it is a general tightness that resolves within seconds and has not recurred recently. Does have a history of prior MIs. Is not on blood thinners. Denies any lower extremity swelling. Has no other acute complaints at this time. Presents for further evaluation. Originally evaluated as a quick note. Patient also has mild cough. He has a history of smoking.Denies any abdominal pain. (Rey Medina) - Related Data Home Medications Medication Instructions Recorded Confirmed Dextroamphetamine/Amphetamine 20 mg PO DAILY 08/16/13 06/04/18 [Adderall] Aspirin 81 mg PO DAILY 04/27/16 06/04/18 Esomeprazole Magnesium [NexIUM] 20 mg PO DAILY 04/27/16 06/04/18 Levocetirizine Dihydrochloride 5 mg PO DAILY 01/03/17 06/04/18 [Xyzal] [place]-3 Fatty Acids/Fish Oil [Fish 1 cap PO DAILY 06/04/18 06/04/18 Oil 1,000 mg Softgel] Potassium Gluconate [Potassium 99 mg PO DAILY 06/04/18 06/04/18 Gluconate ER] Previous Rx's Medication Instructions Recorded Ibuprofen [Motrin] 600 mg PO Q8HR PRN #30 tab 06/04/18 Acetaminophen Tab [Tylenol Tab] 500 mg PO Q6H PRN #24 tablet 02/08/22 Naproxen [Naprosyn] 375 mg PO Q12HR PRN #20 tablet 02/08/22 Allergies Allergy/AdvReac Type Severity Reaction Status Date / Time cat dander Allergy Unknown Verified 01/17/23 17:15 Review of Systems ROS Other: All systems not noted in ROS Statement are negative. <Mavis Smith - Last Filed: 05/05/23 20:58> ROS Other: All systems not noted in ROS Statement are negative. <Rey Medina - Last Filed: 05/06/23 03:16> ROS Statement: Those systems with pertinent positive or pertinent negative responses have been documented in the HPI. Review of Systems: CONST: Denies fever EYES: Denies blurry vision ENT: Denies nasal congestion C/V: Denies Chest pain RESP: Denies shortness of breath GI: Denies abdominal pain : Denies dysuria SKIN: Denies rash. MSK: Denies joint pain. NEURO: Denies headache (Rey Medina) EKG Findings - EKG Comments: EKG Findings:: 12-lead Electrocardiogram Interpretation Note. EKG was reviewed and interpreted by myself. 12-lead ECG performed at 2105 is interpreted by me as revealing normal sinus rhythm at a rate of 81 beats per minute. [place] is normal. [place] interval is 153 ms, QRS duration is 92 ms, QTc is 389 ms. Isolated T wave inversion in lead III.. There were no obvious acute ST or T wave abnormalities to suggest myocardial ischemia or injury. R wave progression across the precordium was satisfactory. By my interpretation this EKG is non- diagnostic for acute ischemia. - EKG Results: EKG: interpreted by ERMD <Rey Medina - Last Filed: 05/06/23 03:16> Past Medical History Past Medical History: COPD, CVA/TIA, GERD/Reflux, Hyperlipidemia, Myocardial Infarction ([place]) Additional Past Medical History / Comment(s): TIA 2014-no residual effects Last Myocardial Infarction Date:: 2013 History of Any Multi-Drug Resistant Organisms: None Reported Past Surgical History: Heart Catheterization With Stent, Orthopedic Surgery Additional Past Surgical History / Comment(s): left shoulder surgery Past Anesthesia/Blood Transfusion Reactions: No Reported Reaction Date of Last Stent Placement:: 2013 Past Psychological History: No Psychological Hx Reported Smoking Status: Current every day smoker Past Alcohol Use History: Daily Past Drug Use History: None Reported - Past Family History Mother Family Medical History: No Reported History <Mavis Smith - Last Filed: 05/05/23 20:58> General Exam Limitations: no limitations <Mavis Smith - Last Filed: 05/05/23 20:58> <Rey Medina - Last Filed: 05/06/23 03:16> - General Exam Comments Initial Comments: Visual Physical Exam Vital signs reviewed General: Well-appearing, nontoxic, no acute distress. Head: Normocephalic, atraumatic Eyes: PERRLA, EOMI ENT: Airway patent Chest: Nonlabored breathing Skin: No visual rash, normal skin tone Neuro: Alert and oriented 3 Musculoskeletal: No gross abnormalities (Mavis Smith) General: Appears in no acute distress. HEAD: Normal with no signs of head trauma. EYES: PERRLA, EOMI, conjunctiva normal, no discharge. ENT: Hearing grossly intact, normal oropharynx. RESPIRATORY: Clear breath sounds bilaterally. No wheezes, rales, or rhonchi. C/V: Regular rate and rhythm. S1 and S2 auscultated, no edema, peripheral pulses 2+ and intact throughout ABD: Abd is soft, nontender, nondistended EXT: Normal range of motion, no obvious deformity SKIN: No rashes or lesions observed on exposed skin. NEURO: Alert and oriented x 4. (Rey Medina) Course Vital Signs 05/05/23 05/05/23 05/06/23 20:53 23:38 02:24 Temperature 97.8 F 101.2 F H 98.9 F Pulse Rate 87 79 82 Respiratory 18 18 18 Rate Blood Pressure 99/67 148/84 144/90 O2 Sat by Pulse 96 95 98 Oximetry Chest Pain MDM <Mavis Smith - Last Filed: 05/05/23 20:58> <Rey Medina - Last Filed: 05/06/23 03:16> - MDM I performed the quick note portion of this visit, electronically signed Mavis Smith PA-C (Mavis Smith) Was pt. sent in by a medical professional or institution (ANETTE Moreno, METAL SMELTER, urgent care, hospital, or fpc...) When possible be specific @ -No Did you speak to anyone other than the patient for history (EMS, parent, family, police, friend...)? What history was obtained from this source @ -No Did you review nursing and triage notes (agree or disagree)? Why? @ -I reviewed and agree with nursing and triage notes Were old charts reviewed (outside hosp., previous admission, EMS record, old EKG, old radiological studies, urgent care reports/EKG's, fpc records)? Report findings @ -No old charts were reviewed Differential Diagnosis (chest pain, altered mental status, abdominal pain women, abdominal pain men, vaginal bleeding, weakness, fever, dyspnea, syncope, headache, dizziness, GI bleed, back pain, seizure, CVA, palpatations, mental health, musculoskeletal)? @ -Viral illness, pneumonia, ACS. This list is not all inclusive. EKG interpreted by me (3pts min.). @ -As above X-rays interpreted by me (1pt min.). @ -Chest x-ray reveals no obvious acute cardiopulmonary process. CT interpreted by me (1pt min.). @ -None done U/S interpreted by me (1pt. min.). @ -None done What testing was considered but not performed or refused? (CT, X-rays, U/S, labs)? Why? @ -None What meds were considered but not given or refused? Why? @ -None Did you discuss the management of the patient with other professionals (professionals i.e. , ANETTE, METAL SMELTER, lab, RT, psych nurse, social work lecturer, intellectual property lawyer, teacher, chief lifestyle officer, dependency case manager)? Give summary @ -No Was smoking cessation discussed for >3mins.? @ -No Was critical care preformed (if so, how long)? @ -No Were there social determinants of health that impacted care today? How? (Homelessness, low income, unemployed, alcoholism, drug addiction, transportation, low edu. Level, literacy, decrease access to med. care, senior care, re hab)? @ -No Was there de-escalation of care discussed even if they declined (Discuss DNR or withdrawal of care, Hospice)? DNR status @ -No What co-morbidities impacted this encounter? (DM, HTN, Smoking, COPD, CAD, Cancer, CVA, ARF, Chemo, Hep., AIDS, mental health diagnosis, sleep apnea, morbid obesity)? @ -CAD, COPD Was patient admitted / discharged? Hospital course, mention meds given and rou te, prescriptions, significant lab abnormalities, going to OR and other pertinent info. @ -Based on the patient's presentation and physical exam, patient presents complaining of nonfocal chest tightness currently having no complaints, as well as upper respiratory symptoms as well as diarrhea and nausea and vomiting for multiple days. Workup was started as a quick note in triage. Workup remarkable for mild leukopenia 3.7, and DENEEN with an elevated creatinine of 1.77, undetectable troponin, as well as a positive influenza A swab. Remainder the workup unremarkable including an EKG that shows no signs of acute ischemia and chest x-ray that shows no obvious acute cardiopulmonary process. Vital signs remarkable for mild febrile illness, with temperature of 101. At this time, we did discuss that with his cardiac history did recommend 1 repeat troponin as well as treatment of his mild DENEEN with a liter of fluid. Patient was in agreement this plan. Vital signs otherwise within acceptable limits. Repeat troponin remains low. He remains asymptomatic. Fevers improved following antipyretic. He will be discharged home at this time with RACIEL Kohler. Patient was in agreement this plan. He was informed of his influenza A diagnosis. I instructed the patient to follow up with their PCP in the next 1-3 days. I explained that the patient should return to the emergency department if they experience any worsening symptoms. Strict return precautions were discussed with the patient. The patient expressed understanding of these instructions. I answered all questions that the patient had. The patient was discharged home in good condition with their prescriptions and follow up information. Undiagnosed new problem with uncertain prognosis? @ -No Drug Therapy requiring intensive monitoring for toxicity (Heparin, Nitro, Insulin, Cardizem)? @ -No Were any procedures done? @ -No Diagnosis/symptom? @ -Influenza A infection, DENEEN Acute, or Chronic, or Acute on Chronic? @ -Acute Uncomplicated (without systemic symptoms) or Complicated (systemic symptoms)? @ -Complicated Side effects of treatment? @ -No Exacerbation, Progression, or Severe Exacerbation? @ -No Poses a threat to life or bodily function? How? (Chest pain, [place], [place], pneumonia, PE, COPD, DKA, ARF, appy, cholecystitis, CVA, Diverticulitis, Homicidal, Suicidal, threat to staff... and all critical care pts) @ -Unlikely (Rey Medina) Disposition <Mavis Smith - Last Filed: 05/05/23 20:58> Is patient prescribed a controlled substance at d/c from ED?: No Time of Disposition: 01:19 <Rey Medina - Last Filed: 05/06/23 03:16> Clinical Impression: Influenza A, DENEEN (acute kidney injury) Disposition: HOME SELF-CARE Condition: Fair Instructions (If sedation given, give patient instructions): Acute Kidney Injury (DC), Influenza (ED) Referrals: Bernabe Lopez DO [Primary Care Provider] - 1-2 days
[2023-05-05 21:24] VITALS: RESP 18
[2023-05-05 21:44] LABS: HCT 47.1 % (39.0-53.0); MCH 33.4 pg (25.0-35.0); MCHC 33.9 g/dL (31.0-37.0); MCV 98.4 fL (80.0-100.0); Mean Platelet Volume 8.7; Platelet Count 159 k/uL (150-450); RBC 4.79 m/uL (4.30-5.90); RDW 14.3 % (11.5-15.5); WBC 3.7 k/uL (3.8-10.6)
--- NOTE | 2023-05-05 21:49 | XR ---
EXAMINATION TYPE: XR chest 2V DATE OF EXAM: 05/05/2023 9:38 PM CLINICAL INDICATION:Male, 62 years old with history of Chest Pain; COMPARISON: Chest radiographs from 10/20/2021. TECHNIQUE: XR chest 2V Frontal and lateral views of the chest. FINDINGS: Lungs/Pleura: There is flattening of the diaphragm with increased lucency of the lungs. No evidence o f pneumothorax, pleural effusion or focal consolidation. Pulmonary vascularity: Unremarkable. Heart/mediastinum: Cardiomediastinal silhouette is unremarkable. Musculoskeletal: No acute osseous pathology. Other findings: None IMPRESSION: 1. No acute cardiopulmonary disease process. 2. COPD changes.
[2023-05-05 21:52] LABS: INR 0.9 (<1.2); Partial Thromboplastin Time 28.6 sec (22.0-30.0); Prothrombin Time 9.9 sec (10.0-12.5)
[2023-05-05 22:14] LABS: ALT 19 U/L (4-49); AST 37 U/L (17-59); African American GFR (CKD) 46 (>60 ml/min/1.73 sqM); Albumin 4.1 g/dL (3.5-5.0); Alkaline Phosphatase 123 U/L (38-126); Amylase 87 U/L (30-110); Anion Gap 8 mmol/L; Blood Urea Nitrogen 25 mg/dL (9-20); Calcium 9.4 mg/dL (8.4-10.2); Carbon Dioxide 22 mmol/L (22-30); Chloride 103 mmol/L (98-107); Glucose 104 mg/dL (74-99); Lipase 72 U/L (23-300); Magnesium 1.9 mg/dL (1.6-2.3); Non-African American GFR(CKD) 40 (>60 ml/min/1.73 sqM); Potassium 4.2 mmol/L (3.5-5.1); Sodium 133 mmol/L (137-145); Total Bilirubin 0.7 mg/dL (0.2-1.3); Total Protein 7.2 g/dL (6.3-8.2)
[2023-05-05 22:22] LABS: Band Neutrophils % 9 %; Lymphocytes # (M) 1.11 k/uL (1.0-4.8); Monocytes # (M) 0.37 k/uL (0-1.0); Neutrophils % (M) 51 %; Nucleated Red Blood Cells 0 /100 WBC (0-0); Total Cells Counted 100
[2023-05-06] MEDS: ONDANSETRON 4 MG/2 ML VIAL IVP STA (00:16)
[2023-05-06] MEDS: SODIUM CHLORIDE 0.9% 1,000 ML IV STA (00:17)
[2023-05-06] MEDS: ACETAMINOPHEN TAB 500 MG TAB PO STA (00:28)
[2023-05-06] MEDS: ONDANSETRON 4 MG ODT STARTER PACK 2 TAB BTL PO STA (02:22)
[2023-05-06 02:35] VITALS: BP 144/90; PULSE 82; TEMP 98.9
== END 2023-05-06 02:26 | disposition home or self-care (01) ==
LOC: EC 20:48
DX: J10.1 Influenza due to other identified influenza virus with other respiratory manifestations (principal); N17.9 Acute kidney failure, unspecified; E78.5 Hyperlipidemia, unspecified; I25.2 Old myocardial infarction; J44.9 Chronic obstructive pulmonary disease, unspecified; K21.9 Gastro-esophageal reflux disease without esophagitis; F17.200 Nicotine dependence, unspecified, uncomplicated; Z79.82 Long term (current) use of aspirin; Z79.899 Other long term (current) drug therapy; Z20.822 Contact with and (suspected) exposure to COVID-19
CPT/HCPCS: 99285 ×2; 96374 ×2; 96361 ×2; 36415; 93005; 80053; 82150; 83690; 83735; 84484 ×2; 85025; 85610; 85730; 87636; 71046; 73560; 99203; J2405; S0119

== ENCOUNTER 2024-07-19 07:18 | Observation (INO) | payer BC ==
--- NOTE | 2024-07-19 07:30 | ED ---
General Adult HPI - General Chief complaint: Chest Pain Stated complaint: Chest Pain Time Seen by Provider: 07/19/24 07:22 Source: patient, RN notes reviewed Mode of arrival: ambulatory Limitations: no limitations - History of Present Illness Initial comments: Patient is a 63-year-old male present to the emergency department with concern for chest discomfort onset of symptoms was a couple days ago. Discomfort is only with exertion, currently symptom-free. Discomfort feels like tightness in the sternal region. No radiation. No nausea, or diaphoresis. Patient does have history of similar symptoms previously associated with previous IN. - Related Data Home Medications Medication Instructions Recorded Confirmed Aspirin 81 mg PO HS 04/27/16 07/19/24 [place]-3 Fatty Acids/Fish Oil [Fish 1 cap PO HS 06/04/18 07/19/24 Oil 1,000 mg Softgel] Esomeprazole Magnesium [NexIUM 20 mg PO HS 07/19/24 07/19/24 24Hr] Ipratropium [place] [Ipratropium 2 spr EA NOSTRIL BID PRN 07/19/24 07/19/24 [place] 0.03%] Metoprolol Succinate (ER) [Toprol 50 mg PO HS 07/19/24 07/19/24 Xl] Allergies Allergy/AdvReac Type Severity Reaction Status Date / Time cat dander Allergy Unknown Verified 07/19/24 08:39 Review of Systems ROS Statement: Those systems with pertinent positive or pertinent negative responses have been documented in the HPI. ROS Other: All systems not noted in ROS Statement are negative. Constitutional: Denies: fever Eyes: Denies: eye pain ENT: Denies: ear pain Respiratory: Denies: cough Cardiovascular: Reports: as per HPI, chest pain Gastrointestinal: Denies: abdominal pain Musculoskeletal: Denies: back pain Past Medical History Past Medical History: COPD, CVA/TIA, GERD/Reflux, Hyperlipidemia, Myocardial Infarction ([place]) Additional Past Medical History / Comment(s): TIA 2014-no residual effects Last Myocardial Infarction Date:: 2013 History of Any Multi-Drug Resistant Organisms: None Reported Past Surgical History: Heart Catheterization With Stent, Orthopedic Surgery Additional Past Surgical History / Comment(s): left shoulder surgery Past Anesthesia/Blood Transfusion Reactions: No Reported Reaction Date of Last Stent Placement:: 2013 Past Psychological History: No Psychological Hx Reported Smoking Status: Current every day smoker Past Alcohol Use History: Daily Past Drug Use History: None Reported - Past Family History Mother Family Medical History: No Reported History General Exam Limitations: no limitations General appearance: alert, in no apparent distress Head exam: Present: normocephalic Eye exam: Present: normal appearance Neck exam: Present: normal inspection Respiratory exam: Present: normal lung sounds bilaterally. Absent: chest wall tenderness Cardiovascular Exam: Present: regular rate, normal rhythm, normal heart sounds Expanded Peripheral pulses: 2+: Radial (R), Radial (L), Posterior Tibialis (R), Posterior Tibialis (L) GI/Abdominal exam: Present: soft. Absent: tenderness Extremities exam: Present: normal inspection. Absent: pedal edema, calf tenderness Neurological exam: Present: alert Psychiatric exam: Present: normal affect, normal mood Skin exam: Present: normal color Course Vital Signs 07/19/24 07/19/24 07:20 07:30 Temperature 97.6 F Pulse Rate 65 Pulse Rate [ 57 L Blade Grinder ] Respiratory 18 Rate Blood Pressure 240/90 O2 Sat by Pulse 98 Oximetry EKG Findings - EKG Results: EKG: interpreted by ERMD (LVH criteria. Nonspecific ST-T), sinus rhythm, normal axis EKG shows: bradycardia Medical Decision Making - Medical Decision Making I discussed smoking cessation for greater than 3 minutes. The risks of smoking were discussed with the patient including but not limited to wrist of cancer, stroke, coronary artery disease, and COPD. Also discussed with the patient were multiple methods of quitting smoking. Lastly, we discussed the financial cost of smoking. Was pt. sent in by a medical professional or institution (, PA, CURING PICKLING PACKER, urgent care, hospital, or intermediate...) When possible be specific @ -No Did you speak to anyone other than the patient for history (EMS, parent, family, police, friend...)? What history was obtained from this source @ -No Did you review nursing and triage notes (agree or disagree)? Why? @ -I reviewed and agree with nursing and triage notes Were old charts reviewed (outside hosp., previous admission, EMS record, old EKG, old radiological studies, urgent care reports/EKG's, intermediate records)? Report findings @ -No old charts were reviewed Differential Diagnosis (chest pain, altered mental status, abdominal pain women, abdominal pain men, vaginal bleeding, weakness, fever, dyspnea, syncope, headache, dizziness, GI bleed, back pain, seizure, CVA, palpatations, mental health, musculoskeletal)? @ -Differential Chest Pain: Stable Angina, Unstable Angina, STEMI, NSTEMI Aortic Dissection, Pneumothorax, Musculoskeletal, Esophageal Spasm GERD, Cholecystitis, Pancreatitis, Zoster, this is not meant to be an all-inclusive list. EKG interpreted by me (3pts min.). @ -As above X-rays interpreted by me (1pt min.). @ -Chest x-ray shows no acute process CT interpreted by me (1pt min.). @ -None done U/S interpreted by me (1pt. min.). @ -None done What testing was considered but not performed or refused? (CT, X-rays, U/S, labs)? Why? @ -None What meds were considered but not given or refused? Why? @ -None Did you discuss the management of the patient with other professionals (professionals i.e. , KEM, CURING PICKLING PACKER, lab, RT, psych nurse, psychiatric social worker, gyn physician, teacher, budget officer, cyanide case hardener)? Give summary @ -Case was discussed with Dr. Valerio will admit covering hospital call Was smoking cessation discussed for >3mins.? @ -No Was critical care preformed (if so, how long)? @ -No Were there social determinants of health that impacted care today? How? (Homelessness, low income, unemployed, alcoholism, drug addiction, transportation, low edu. Level, literacy, decrease access to med. care, group home, rehab)? @ -No Was there de-escalation of care discussed even if they declined (Discuss DNR or withdrawal of care, Hospice)? DNR status @ -No What co-morbidities impacted this encounter? (DM, HTN, Smoking, COPD, CAD, Cancer, CVA, ARF, Chemo, Hep., AIDS, mental health diagnosis, sleep apnea, morbid obesity)? @ -Coronary artery disease Was patient admitted / discharged? Hospital course, mention meds given and route, prescriptions, significant lab abnormalities, going to OR and other pertinent info. @ -Patient presents with chest discomfort similar to previous IN. Initial evaluation of troponin unremarkable. Borderline EKG change. Patient will be admitted for further testing and cardiac consult. Admission orders written. Kem neal updated. Patient symptom-free and updated. Undiagnosed new problem with uncertain prognosis? @ -No Drug Therapy requiring intensive monitoring for toxicity (Heparin, Nitro, Insulin, Cardizem)? @ -No Were any procedures done? @ -No Diagnosis/symptom? @ -Chest pain Acute, or Chronic, or Acute on Chronic? @ -Acute Uncomplicated (without systemic symptoms) or Complicated (systemic symptoms)? @ -Default Side effects of treatment? @ -No Exacerbation, Progression, or Severe Exacerbation? @ -No Poses a threat to life or bodily function? How? (Chest pain, [place], [place], pneumonia, PE, COPD, DKA, ARF, appy, cholecystitis, CVA, Diverticulitis, Homicidal, Suicidal, threat to staff... and all critical care pts) @ -Threat to cardiac function - Lab Data Result diagrams: 07/19/24 07:40 07/19/24 07:40 Lab Results 07/19/24 07/19/24 07/19/24 Range/Units 07:40 07:40 07:40 WBC 6.03 (4.50-10.00) 10*3/uL RBC 4.23 L (4.40-5.60) 10*6/uL Hgb 14.3 (13.0-17.0) g/dL Hct 42.3 (39.6-50.0) % MCV 100.0 H (80.0-97.0) fL MCH 33.8 H (27.0-32.0) pg MCHC 33.8 (32.0-37.0) g/dL Plt Count 261 (140-440) 10*3/uL MPV 9.7 (9.5-12.2) fL Immature Gran % (Auto) 0.2 % Neutrophils % 34.6 % Lymphocytes % 51.7 % Monocytes % 9.8 % Eosinophils % 3.0 % Basophils % 0.7 % Immature Gran # 0.01 (0.00-0.04) 10*3/uL Neutrophils # 2.09 (1.80-7.70) 10*3/uL Lymphocytes # 3.12 (0.90-5.00) 10*3/uL Monocytes # 0.59 (0.20-1.00) 10*3/uL Eosinophils # 0.18 (0.04-0.35) 10*3/uL Basophils # 0.04 (0.00-0.10) 10*3/uL PT 9.9 L (10.0-12.5) sec INR 0.9 (<1.2) APTT 26.0 (22.0-30.0) sec D-Dimer 0.55 (<0.60) mg/L FEU Sodium 140 (137-145) mmol/L Potassium 3.8 (3.5-5.1) mmol/L Chloride 105 (98-107) mmol/L Carbon Dioxide 27 (22-30) mmol/L Anion Gap 8 mmol/L BUN 18 (9-20) mg/dL Creatinine 1.29 H (0.66-1.25) mg/dL Est GFR (CKD-EPI)AfAm 67 (>60 ml/min/1.73 sqM) Est GFR (CKD-EPI)NonAf 58 (>60 ml/min/1.73 sqM) Glucose 170 H (74-99) mg/dL Calcium 9.5 (8.4-10.2) mg/dL Magnesium 1.8 (1.6-2.3) mg/dL Total Bilirubin 0.6 (0.2-1.3) mg/dL AST 19 (17-59) U/L ALT 13 (4-49) U/L Alkaline Phosphatase 126 (38-126) U/L Troponin I (0.000-0.034) ng/mL Total Protein 7.8 (6.3-8.2) g/dL Albumin 4.2 (3.5-5.0) g/dL 07/19/ Range/Units 07:40 WBC (4.50-10.00) 10*3/uL RBC (4.40-5.60) 10*6/uL Hgb (13.0-17.0) g/dL Hct (39.6-50.0) % MCV (80.0-97.0) fL MCH (27.0-32.0) pg MCHC (32.0-37.0) g/dL Plt Count (140-440) 10*3/uL MPV (9.5-12.2) fL Immature Gran % (Auto) % Neutrophils % % Lymphocytes % % Monocytes % % Eosinophils % % Basophils % % Immature Gran # (0.00-0.04) 10*3/uL Neutrophils # (1.80-7.70) 10*3/uL Lymphocytes # (0.90-5.00) 10*3/uL Monocytes # (0.20-1.00) 10*3/uL Eosinophils # (0.04-0.35) 10*3/uL Basophils # (0.00-0.10) 10*3/uL PT (10.0-12.5) sec INR (<1.2) APTT (22.0-30.0) sec D-Dimer (<0.60) mg/L FEU Sodium (137-145) mmol/L Potassium (3.5-5.1) mmol/L Chloride (98-107) mmol/L Carbon Dioxide (22-30) mmol/L Anion Gap mmol/L BUN (9-20) mg/dL Creatinine (0.66-1.25) mg/dL Est GFR (CKD-EPI)AfAm (>60 ml/min/1.73 sqM) Est GFR (CKD-EPI)NonAf (>60 ml/min/1.73 sqM) Glucose (74-99) mg/dL Calcium (8.4-10.2) mg/dL Magnesium (1.6-2.3) mg/dL Total Bilirubin (0.2-1.3) mg/dL AST (17-59) U/L ALT (4-49) U/L Alkaline Phosphatase (38-126) U/L Troponin I <0.012 (0.000-0.034) ng/mL Total Protein (6.3-8.2) g/dL Albumin (3.5-5.0) g/dL Disposition Clinical Impression: Chest pain Disposition: ADMITTED IP TO THIS HOSP Is patient prescribed a controlled substance at d/c from ED?: No Referrals: None,Stated [Primary Care Provider] - 1-2 days Time of Disposition: 08:50
[2024-07-19] MEDS: NITROGLYCERIN OINT 1 INCH/GM PACKET TOPICAL STA (07:36)
[2024-07-19] MEDS: ASPIRIN 81 MG PO STA (07:37)
[2024-07-19 07:56] LABS: Basophils # (A) 0.04 10*3/uL (0.00-0.10); Basophils % (A) 0.7 %; Eosinophils # (A) 0.18 10*3/uL (0.04-0.35); HCT 42.3 % (39.6-50.0); HGB 14.3 g/dL (13.0-17.0); Lymphocytes # (A) 3.12 10*3/uL (0.90-5.00); Lymphocytes % (A) 51.7 %; MCH 33.8 pg (27.0-32.0); MCHC 33.8 g/dL (32.0-37.0); Mean Platelet Volume 9.7 fL (9.5-12.2); Monocytes # (A) 0.59 10*3/uL (0.20-1.00); Monocytes % (A) 9.8 %; Neutrophils # (A) 2.09 10*3/uL (1.80-7.70); Neutrophils % (A) 34.6 %; Platelet Count 261 10*3/uL (140-440); RBC 4.23 10*6/uL (4.40-5.60); RDW 13.2 % (11.5-14.5); WBC 6.03 10*3/uL (4.50-10.00)
[2024-07-19 08:11] LABS: ALT 13 U/L (4-49); AST 19 U/L (17-59); African American GFR (CKD) 67 (>60 ml/min/1.73 sqM); Albumin 4.2 g/dL (3.5-5.0); Alkaline Phosphatase 126 U/L (38-126); Anion Gap 8 mmol/L; Blood Urea Nitrogen 18 mg/dL (9-20); Calcium 9.5 mg/dL (8.4-10.2); Carbon Dioxide 27 mmol/L (22-30); Chloride 105 mmol/L (98-107); Glucose 170 mg/dL (74-99); Magnesium 1.8 mg/dL (1.6-2.3); Non-African American GFR(CKD) 58 (>60 ml/min/1.73 sqM); Potassium 3.8 mmol/L (3.5-5.1); Sodium 140 mmol/L (137-145); Total Bilirubin 0.6 mg/dL (0.2-1.3); Total Protein 7.8 g/dL (6.3-8.2)
--- NOTE | 2024-07-19 08:28 | XR ---
EXAMINATION TYPE: XR chest 2V DATE OF EXAM: 07/19/2024 8:02 AM COMPARISON: 05/05/2023 CLINICAL INDICATION: Male, 63 years old with history of Chest Pain: Shortness of breath TECHNIQUE: XR chest 2V views of the chest are obtained. FINDINGS: Scattered senescent parenchymal changes noted. Hyperinflation compatible with COPD. No evidence for infiltrate. No evidence for atelectasis. Heart size is stable. Mediastinal structures are stable and grossly unremarkable. No evidence for hilar prominence. Degenerative changes dorsal spine. IMPRESSION: 1. No evidence for acute pulmonary disease. [facility], , 07/19/2024 8:26 AM
[2024-07-19 08:33] LABS: INR 0.9 (<1.2); Prothrombin Time 9.9 sec (10.0-12.5)
[2024-07-19] MEDS ORDERED: NITROGLYCERIN SL TABS 0.4 MG TAB SUBLINGUAL PRN (08:50)
[2024-07-19] MEDS ORDERED: IPRATROPIUM BROMIDE 0.06% NASAL SPRAY (15 ML) EA NOSTRIL PRN (09:01)
[2024-07-19] MEDS: METOPROLOL TARTRATE 25 MG TAB PO STA (09:15)
[2024-07-19] MEDS: LOSARTAN 50 MG TAB PO SCH (11:33)
[2024-07-19] MEDS ORDERED: NITROGLYCERIN OINT 1 INCH/GM PACKET TOPICAL SCH (12:00)
--- NOTE | 2024-07-19 12:06 | P.CRDCN ---
History of Present Illness History of present illness: HISTORY OF PRESENT ILLNESS: This is a 63-year-old male with a past medical history significant for hypertension, daily alcohol use, nicotine dependence. Patient does not follow with a legend maker. We have been asked to see the patient in consultation for chest pain. Patient examined at the bedside in the emergency room. Patient presented to the hospital with a chief complaint of chest discomfort. He states the pain is in the middle of his chest. He states the pain is worse with coughing. He denies any radiation of the pain. Patient was found to have significantly elevated blood pressure with a reading of 240/90. He does report a history of hypertension but is only prescribed metoprolol on an outpatient basis. DIAGNOSTICS: - EKG reveals sinus mechanism with nonspecific ST-T wave changes. - Chest xray negative for acute pulmonary process - Laboratory data: WBC 6.02. Hemoglobin 14.3. Platelet count 261. D-dimer 0.55. Sodium 140. Potassium 3.8. BUN 18. Creatinine 1.29. Troponin negative x 2. - Current home cardiac medications include aspirin 81 mg daily and metoprolol succinate 50 mg at night. REVIEW OF SYSTEMS: At the time of my exam: CONSTITUTIONAL: Denies fever or chills. HEENT: Denies blurred vision, vision changes, or eye pain. Denies hemoptysis CARDIOVASCULAR: Denies chest pain. Denies orthopnea. Denies PND. Denies palpitations RESPIRATORY: Denies shortness of breath. GASTROINTESTINAL: Denies abdominal pain. Denies nausea or vomiting. HEMATOLOGIC: Denies bleeding disorders. GENITOURINARY: Denies any blood in urine. SKIN: Denies pruitis. Denies rash. PHYSICAL EXAM: VITAL SIGNS: Reviewed. GENERAL: Well-developed in no acute distress. HEENT: Head is normocephalic. Pupils are equal, round. Sclerae anicteric. Mucous membranes of the mouth are moist. Neck supple. No JVD or thyromegaly LUNGS: Respirations even and unlabored. Lungs essentially clear to auscultation bilaterally. HEART: Regular rate and rhythm. S1 and S2 heard. ABDOMEN: Soft. Nondistended. Nontender. EXTREMITIES: Normal range of motion. No clubbing or cyanosis. Peripheral pulses intact. No lower extremity edema NEUROLOGIC: Awake and alert. Oriented x 3. ASSESSMENT: Chest pain, atypical, troponin negative x 2 Hypertensive emergency, blood pressure 240/90 on admission History of hypertension Daily alcohol use Nicotine dependence PLAN: An acute coronary event has been ruled out Obtain 2D echo to assess cardiac structure and function Resume home cardiac medications including aspirin and metoprolol Add losartan 50 mg daily Continue to monitor blood pressure Recommend abstinence from alcohol Smoking cessation recommended. Patient to be referred to [place] quit line upon discharge We will plan for outpatient stress testing when patient's blood pressures are better controlled Further recommendations pending patient course Nurse practitioner note has been reviewed by physician. Signing provider agrees with the documented findings, assessment, and plan of care documented by PROGRAMMER ENGINEERING AND SCIENTIFIC as a scribe. Past Medical History Past Medical History: COPD, CVA/TIA, GERD/Reflux, Hyperlipidemia, Myocardial Infarction ([place]) Additional Past Medical History / Comment(s): TIA 2014-no residual effects Last Myocardial Infarction Date:: 2013 History of Any Multi-Drug Resistant Organisms: None Reported Past Surgical History: Heart Catheterization With Stent, Orthopedic Surgery Additional Past Surgical History / Comment(s): left shoulder surgery Past Anesthesia/Blood Transfusion Reactions: No Reported Reaction Date of Last Stent Placement:: 2013 Past Psychological History: No Psychological Hx Reported Smoking Status: Current every day smoker Past Alcohol Use History: Daily Past Drug Use History: None Reported - Past Family History Mother Family Medical History: No Reported History Medications and Allergies Home Medications Medication Instructions Recorded Confirmed Type Aspirin 81 mg PO HS 04/27/16 07/19/24 History [place]-3 Fatty Acids/Fish Oil [Fish 1 cap PO HS 06/04/18 07/19/24 History Oil 1,000 mg Softgel] Esomeprazole Magnesium [NexIUM 20 mg PO HS 07/19/24 07/19/24 History 24Hr] Ipratropium [place] [Ipratropium 2 spr EA NOSTRIL BID PRN 07/19/24 07/19/24 History [place] 0.03%] Metoprolol Succinate (ER) [Toprol 50 mg PO HS 07/19/24 07/19/24 History Xl] Allergies Allergy/AdvReac Type Severity Reaction Status Date / Time cat dander Allergy Unknown Verified 07/19/24 08:39 Physical Exam Vitals: Vital Signs Temp Pulse Pulse Resp BP Pulse Ox 07/19/24 11:00 58 L 16 197/98 96 07/19/24 09:16 53 L 18 191/98 97 07/19/24 08:52 98.2 F 57 L 18 214/100 98 07/19/24 07:30 57 L 07/19/24 07:20 97.6 F 65 18 240/90 98 Intake and Output 07/18/24 07/19/24 07/19/24 22:59 06:59 14:59 Other: Weight 86.183 kg Results 07/19/24 07:40 07/19/24 07:40 Cardiac Enzymes 07/19/24 07/19/24 07/19/24 Range/Units 07:40 07:40 10:24 AST 19 (17-59) U/L Troponin I <0.012 <0.012 (0.000-0.034) ng/mL Coagulation 07/19/24 Range/Units 07:40 PT 9.9 L (10.0-12.5) sec APTT 26.0 (22.0-30.0) sec CBC 07/19/24 Range/Units 07:40 WBC 6.03 (4.50-10.00) 10*3/uL RBC 4.23 L (4.40-5.60) 10*6/uL Hgb 14.3 (13.0-17.0) g/dL Hct 42.3 (39.6-50.0) % Plt Count 261 (140-440) 10*3/uL Comprehensive Metabolic Panel 07/19/24 Range/Units 07:40 Sodium 140 (137-145) mmol/L Potassium 3.8 (3.5-5.1) mmol/L Chloride 105 (98-107) mmol/L Carbon Dioxide 27 (22-30) mmol/L BUN 18 (9-20) mg/dL Creatinine 1.29 H (0.66-1.25) mg/dL Glucose 170 H (74-99) mg/dL Calcium 9.5 (8.4-10.2) mg/dL AST 19 (17-59) U/L ALT 13 (4-49) U/L Alkaline Phosphatase 126 (38-126) U/L Total Protein 7.8 (6.3-8.2) g/dL Albumin 4.2 (3.5-5.0) g/dL Current Medications Generic Name Dose Route Start Last Admin Trade Name Freq PRN Reason Stop Dose Admin Aspirin 81 mg 07/20/24 09:00 Aspirin 81 Mg PO DAILY ABI Ipratropium [place] 2 spray 07/19/24 09:01 Ipratropium [place] 0.06% Nasal [place] (15 Ml) EA NOSTRIL BID PRN Allergy Symptoms Losartan Potassium 50 mg 07/19/24 11:30 07/19/24 11:33 Losartan 50 Mg Tab PO 50 mg DAILY ABI Administration Metoprolol Succinate 50 mg 07/19/24 21:00 Metoprolol Succinate (Er) 50 Mg Tab.Er.24h PO HS ABI Nitroglycerin 0.4 mg 07/19/24 08:50 Nitroglycerin Sl Tabs 0.4 Mg Tab SUBLINGUAL Q5M PRN Chest Pain Pantoprazole Sodium 40 mg 07/19/24 21:00 Pantoprazole 40 Mg Tablet PO HS ABI Intake and Output 07/18/24 07/19/24 07/19/24 22:59 06:59 14:59 Other: Weight 86.183 kg Patient Weight 07/20/24 06:59 Weight 86.183 kg 07/19/24 07:40 07/19/24 07:40
[2024-07-19] MEDS: amLODIPine 10 MG TAB PO SCH (14:01)
[2024-07-19] MEDS ORDERED: NON FORMULARY DRUG (Omega-3 Fatty Acids/Fish Oil [Fish Oil 1,000 Mg Softgel] 1 EACH Capsul PO SCH (21:00)
[2024-07-19] MEDS: PANTOPRAZOLE 40 MG TABLET PO SCH (22:13)
[2024-07-19] MEDS: METOPROLOL SUCCINATE (ER) 50 MG TAB.ER.24H PO SCH (22:13)
[2024-07-20] MEDS: hydrALAZINE HCL 20 MG/ML 1 ML VIAL IVP STA (04:44)
[2024-07-20 06:27] VITALS: TEMP 97.9
[2024-07-20] MEDS: ASPIRIN 81 MG PO SCH (08:51)
[2024-07-20] MEDS ORDERED: ASPIRIN 325 MG TAB PO SCH (09:00)
[2024-07-20] MEDS: hydrALAZINE HCL 20 MG/ML 1 ML VIAL IM STA (10:27)
[2024-07-20 10:33] LABS: Chol/HDL Ratio 2.59 Ratio; LDL Cholesterol,Calculated 80.5 mg/dL (0.0-131.0)
--- NOTE | 2024-07-20 13:03 | P.PN ---
Subjective HISTORY OF PRESENT ILLNESS: This is a 63-year-old male with a past medical history significant for hypertension, daily alcohol use, nicotine dependence. Patient does not follow with a education and development manager. We have been asked to see the patient in consultation for chest pain. Patient examined at the bedside in the emergency room. Patient presented to the hospital with a chief complaint of chest discomfort. He states the pain is in the middle of his chest. He states the pain is worse with coughing. He denies any radiation of the pain. Patient was found to have significantly elevated blood pressure with a reading of 240/90. He does report a history of hypertension but is only prescribed metoprolol on an outpatient basis. DIAGNOSTICS: - EKG reveals sinus mechanism with nonspecific ST-T wave changes. - Chest xray negative for acute pulmonary process - Laboratory data: WBC 6.02. Hemoglobin 14.3. Platelet count 261. D-dimer 0.55. Sodium 140. Potassium 3.8. BUN 18. Creatinine 1.29. Troponin negative x 2. - Current home cardiac medications include aspirin 81 mg daily and metoprolol succinate 50 mg at night. 07/20/2024 Patient examined this morning to bedside. Patient currently denies chest pain or pressure. He denies shortness of breath. Vital signs are stable. Blood pressure has improved. Most recent reading 131/72. 2D echo remains pending. PHYSICAL EXAM: VITAL SIGNS: Reviewed. GENERAL: Well-developed in no acute distress. HEENT: Head is normocephalic. Pupils are equal, round. Sclerae anicteric. Mucous membranes of the mouth are moist. Neck supple. No JVD or thyromegaly LUNGS: Respirations even and unlabored. Lungs essentially clear to auscultation bilaterally. HEART: Regular rate and rhythm. S1 and S2 heard. ABDOMEN: Soft. Nondistended. Nontender. EXTREMITIES: Normal range of motion. No clubbing or cyanosis. Peripheral pulses intact. No lower extremity edema NEUROLOGIC: Awake and alert. Oriented x 3. ASSESSMENT: Chest pain, atypical, troponin negative x 2 Hypertensive emergency, blood pressure 240/90 on admission History of hypertension Daily alcohol use Nicotine dependence PLAN: An acute coronary event has been ruled out 2D echo ordered. Await results. Continue current cardiac medications including amlodipine, aspirin, Lipitor, losartan, and metoprolol Continue to monitor blood pressure Recommend abstinence from alcohol Smoking cessation recommended. Patient to be referred to [place] quit line upon discharge We will plan for outpatient stress testing Obtain secondary hypertension labs Patient may be discharged home this afternoon from a cardiac standpoint pending results of his echo Further recommendations pending patient course Nurse practitioner note has been reviewed by physician. Signing provider agrees with the documented findings, assessment, and plan of care documented by SOLAR SALES MANAGER as a scribe. Objective - Vital Signs Vital signs: Vital Signs Temp 97.9 F 07/20/24 04:00 Pulse 62 07/20/24 08:00 Resp 16 07/20/24 08:00 BP 131/72 07/20/24 08:00 Pulse Ox 96 07/20/24 08:00 FiO2 Intake & Output 07/19/24 07/20/24 07/20/24 18:59 06:59 18:59 Intake Total 10 250 Balance 10 250 Weight 86.183 kg 86.183 kg Intake: IV 10 10 Invasive Line 1 10 10 Oral 240 Other: Voiding Method Toilet Toilet # Voids 2 - Labs CBC & Chem 7: 07/19/24 07:40 07/19/24 07:40 Labs: Abnormal Lab Results - Last 24 Hours (Table) 07/20/24 Range/Units 07:06 HDL Cholesterol 65.30 H (40.00-60.00) mg/dL
--- NOTE | 2024-07-20 13:17 | CA ---
Transthoracic Echo Report Name: Góemz Wallace Age: 63 Gender: M : 1960 Exam Date: 07/20/2024 09:25 Exam Location: [facility] Ht (in): 73 Wt (lb): 190 Ordering Physician: Mahogany Restrepo Attending/Referring Phys: [id number], Lauro Lye Treater Hannah Zamora RDCS Procedure CPT: Indications: LV function, CP, HTN Cardiac Hx: Stent x2, prior stroke Technical Quality: Fair Contrast 1: Total Dose (mL): Contrast 2: Total Dose (mL): MEASUREMENTS (Male / Female) Normal Values 2D ECHO LV Diastolic Diameter PLAX 4.4 cm 4.2 - 5.9 / 3.9 - 5.3 cm LV Systolic Diameter PLAX 2.9 cm IVS Diastolic Thickness 1.2 cm 0.6 - 1.0 / 0.6 - 0.9 cm LVPW Diastolic Thickness 1.2 cm 0.6 - 1.0 / 0.6 - 0.9 cm LV Relative Wall Thickness 0.5 LVOT Diameter 2.4 cm LV Diastolic Volume MOD BP 139.1 cm??? 67 - 155 / 56 - 104 cm??? LV Systolic Volume MOD BP 50.9 cm??? 22 - 58 / 19 - 49 cm??? LV Ejection Fraction MOD BP 63.4 % >= 55 % LV Cardiac Index MOD BP 2337.9 cm???/min???m??? LV Diastolic Volume MOD 4C 136.4 cm??? LV Systolic Volume MOD 4C 58.4 cm??? LV Ejection Fraction MOD 4C 57.2 % LV Cardiac Index MOD 4C 2066.4 cm???/min???m??? LV Diastolic Length 4C 9.3 cm LV Systolic Length 4C 7.6 cm LV Diastolic Volume MOD 2C 135.6 cm??? LV Systolic Volume MOD 2C 43.0 cm??? LV Ejection Fraction MOD 2C 68.3 % LV Cardiac Index MOD 2C 2454.4 cm???/min???m??? LV Diastolic Length 2C 9.8 cm LV Systolic Length 2C 7.4 cm LA Volume 40.3 cm??? 18 - 58 / 22 - 52 cm??? LA Volume Index 19.1 cm???/m??? 16 - 28 cm???/m??? DOPPLER AV Peak Velocity 140.3 cm/s AV Peak Gradient 7.9 mmHg AV Mean Velocity 95.4 cm/s AV Mean Gradient 4.1 mmHg AV Velocity Time Integral 32.9 cm LVOT Peak Velocity 111.2 cm/s LVOT Peak Gradient 4.9 mmHg LVOT Velocity Time Integral 23.1 cm LVOT Stroke Volume 105.6 cm??? LVOT Stroke Volume Index 50.2 ml/m??? LVOT Cardiac Index 2798.9 cm???/min???m??? AV Area Cont Eq vti 3.2 cm??? AV Area Cont Eq pk 3.6 cm??? MV Area PHT 4.1 cm??? Mitral E Point Velocity 36.4 cm/s Mitral A Point Velocity 71.6 cm/s Mitral E to A Ratio 0.5 MV Deceleration Time 183.1 ms PV Peak Velocity 94.7 cm/s PV Peak Gradient 3.6 mmHg FINDINGS Left Ventricle Left ventricular ejection fraction is estimated at 50-55 %. Mildly increased septal wall thickness. Left ventricular cavity size normal. Basal to mid inferior hypokinesis Right Ventricle Normal right ventricular size and function. Unable to estimate the right ventricular systolic pressure. Right Atrium Normal right atrial size. Left Atrium Normal left atrial size. Mitral Valve Structurally normal mitral valve. No mitral stenosis, regurgitation or prolapse. Aortic Valve Trileaflet aortic valve. Aortic valve sclerosis. No aortic valve stenosis or regurgitation. Tricuspid Valve Structurally normal tricuspid valve. No tricuspid stenosis. Trace tricuspid regurgitation. Pulmonic Valve Structurally normal pulmonic valve. No pulmonic stenosis. No pulmonic regurgitation. Pericardium No pericardial effusion. Fat pad. Aorta Normal size aortic root and proximal ascending aorta. CONCLUSIONS Left ventricular ejection fraction 50 to 55% Basal to mid inferior hypokinesis Mild increased left ventricular wall thickness Trace tricuspid regurgitation No pericardial effusion Previewed by: Dr. Arpit Medina DO (Electronically Signed) Final Date: 20 Jul 2024 13:17
[2024-07-20 16:51] VITALS: BP 144/75; PULSE 59; RESP 16
[2024-07-20] MEDS ORDERED: ATORVASTATIN 40 MG TAB PO SCH (21:00)
--- NOTE | 2024-07-21 00:06 | P.HPIM ---
History of Present Illness This is a pleasant 63 years old male with past medical history as below Presents because of chest pain. It was of the right upper chest about moderate in severity now completely resolved. No dyspnea no coughing. No other GI speci fic symptoms. No neurological complaint like headache dizziness weakness or numbness He smokes about 1 pack/day and he was counseled to quit but he declines nicotine patch. He takes about 2 drinks a day. He denies depression or suicidal thinking. Patient evaluated also with his vitals which were showing extensive elevated blood pressure 217/98. Received treatment and became stable 153/79 and 144/75. Further labs were unremarkable of CBC, BMP, LFT. Troponin was negative. INR within the reference range. D-dimer -0.55 EKG showing sinus bradycardia at 56. Chest x-ray showing no acute pulmonary process Patient was evaluated by paste up copy camera operator. He was started on antihypertensive medication like amlodipine and losartan and patient blood pressure controlled on and became asymptomatic. Patient denies any other new complaint and was eager to be discharged. Supervising Editor [employer] eventually cleared him for discharge with recommendation for outpatient stress test, patient informed and he agrees. Problems and management plan were discussed with the patient and he verbalized understanding and acceptance Patient was found stable and can be discharged home in guarded prognosis however he needs follow-up as an outpatient. Patient was instructed to follow up with PCP within one week and patient agrees Patient was also instructed to follow-up with paste up copy camera operator in 1 week after discharge, and patient agrees. Please refer to discharge instruction as provided Physical exam Gen: patient is a AAOx3, no distress CVS: S1-S2, RRR, no murmur Lungs: B/L CTA, no wheezing Abdomen: soft, no distention, no tenderness, positive bowel sounds Extremity: no leg edema or induration Time spent more than 35 minutes Review of Systems Review of systems CONSTITUTIONAL: No fever, no malaise, no fatigue. HEENT: No recent visual problems or hearing problems. Denied any sore throat. CARDIOVASCULAR: No orthopnea, PND, no palpitations, no syncope. PULMONARY: No shortness of breath, no cough, no hemoptysis. GASTROINTESTINAL: No diarrhea, no nausea, no vomiting, no abdominal pain. Normoactive bowel sounds. NEUROLOGICAL: No headaches, no weakness, no numbness. HEMATOLOGICAL: Denies any bleeding or petechiae. GENITOURINARY: Denies any burning micturition, frequency, or urgency. MUSCULOSKELETAL/RHEUMATOLOGICAL: Denies any joint pain, swelling, or any muscle pain. ENDOCRINE: Denies any polyuria or polydipsia. Past Medical History Past Medical History: COPD, CVA/TIA, GERD/Reflux, Hyperlipidemia, Myocardial Infarction ([place]) Additional Past Medical History / Comment(s): TIA 2014-no residual effects Last Myocardial Infarction Date:: 2013 History of Any Multi-Drug Resistant Organisms: None Reported Past Surgical History: Heart Catheterization With Stent, Orthopedic Surgery Additional Past Surgical History / Comment(s): left shoulder surgery Past Anesthesia/Blood Transfusion Reactions: No Reported Reaction Date of Last Stent Placement:: 2013 Past Psychological History: No Psychological Hx Reported Smoking Status: Current every day smoker Past Alcohol Use History: Daily Additional Past Alcohol Use History / Comment(s): 1ppd for 45 yrs. Past Drug Use History: None Reported - Past Family History Mother Family Medical History: No Reported History Medications and Allergies Home Medications Medication Instructions Recorded Confirmed Type [place]-3 Fatty Acids/Fish Oil [Fish 1 cap PO HS 06/04/18 07/19/24 History Oil 1,000 mg Softgel] Esomeprazole Magnesium [NexIUM 20 mg PO HS 07/19/24 07/19/24 History 24Hr] Ipratropium [place] [Ipratropium 2 spr EA NOSTRIL BID PRN 07/19/24 07/19/24 History [place] 0.03%] Aspirin 81 mg PO HS #30 tab 07/20/24 Rx Atorvastatin [Lipitor] 40 mg PO HS #30 tab 07/20/24 Rx Losartan [Cozaar] 50 mg PO DAILY #30 tab 07/20/24 Rx Metoprolol Succinate (ER) [Toprol 50 mg PO HS #30 tab 07/20/24 Rx XL] amLODIPine [Norvasc] 10 mg PO DAILY #30 tab 07/20/24 Rx Allergies Allergy/AdvReac Type Severity Reaction Status Date / Time cat dander Allergy Unknown Verified 07/19/24 08:39 Physical Exam Vitals: Vital Signs Temp Pulse Pulse Resp BP BP Pulse Ox 07/20/24 05:21 155/72 07/20/24 04:00 97.9 F 58 L 15 217/98 94 L 07/20/24 02:00 52 L 17 07/20/24 00:00 98.2 F 57 L 15 174/86 97 07/19/24 21:52 97.9 F 53 L 15 168/83 96 07/19/24 20:00 98.3 F 52 L 13 165/88 98 07/19/24 18:33 59 L 18 155/81 94 L 07/19/24 18:00 57 L 18 185/105 94 L 07/19/24 17:00 52 L 16 186/99 95 07/19/24 16:00 51 L 16 177/89 96 07/19/24 15:00 52 L 15 173/93 95 07/19/24 14:00 55 L 16 213/109 95 07/19/24 13:59 54 L 18 173/93 95 07/19/24 13:00 59 L 16 207/103 95 07/19/24 12:00 49 L 12 204/97 97 07/19/24 11:00 58 L 16 197/98 96 Intake and Output 07/19/24 07/20/24 07/20/24 22:59 06:59 14:59 Intake Total 10 240 Balance 10 240 Intake: IV 10 Invasive Line 1 10 Oral 240 Other: Voiding Method Toilet Toilet # Voids 0 2 Weight 86.183 kg GENERAL: The patient is alert and oriented x3, not in any acute distress. Well developed, well nourished. HEENT: Pupils are round and equally reacting to light. EOMI. No scleral icterus. No conjunctival pallor. Normocephalic, atraumatic. No pharyngeal erythema. No thyromegaly. CARDIOVASCULAR: S1 and S2 present. No murmurs, rubs, or gallops. PULMONARY: Chest is clear to auscultation, no wheezing , no crackles. ABDOMEN: Soft, nontender, nondistended, normoactive bowel sounds. No palpable organomegaly. MUSCULOSKELETAL: No joint swelling or deformity. EXTREMITIES: No cyanosis, clubbing, or pedal edema. NEUROLOGICAL: Gross neurological examination did not reveal any focal deficits. SKIN: No rashes. no petechiae. Results CBC & Chem 7: 07/19/24 07:40 07/19/24 07:40 Thrombosis Risk Factor Assmnt - Choose All That Apply Any of the Below Risk Factors Present?: Yes Each Factor Represents 1 point: Abnormal pulmonary function (COPD) Other Risk Factors: Yes Each Risk Factor Represents 2 Points: Age 61-74 years Other congenital or acquired thrombophilia - If yes, enter type in comment: No Thrombosis Risk Factor Assessment Total Risk Factor Score: 3 Thrombosis Risk Factor Assessment Level: Moderate Risk
== END 2024-07-20 16:31 | disposition home or self-care (01) ==
LOC: EC 07:18 → 6NMEDSUR 08:51 → 3SCARD 09:48
PROVIDERS: ADMIT Internal Medicine; ATTEND Internal Medicine
DX: R07.89 Other chest pain (principal); I16.1 Hypertensive emergency; I25.10 Atherosclerotic heart disease of native coronary artery without angina pectoris; I10 Essential (primary) hypertension; J44.9 Chronic obstructive pulmonary disease, unspecified; R00.1 Bradycardia, unspecified; F10.90 Alcohol use, unspecified, uncomplicated; F17.210 Nicotine dependence, cigarettes, uncomplicated; I25.2 Old myocardial infarction; Z79.82 Long term (current) use of aspirin; Z79.899 Other long term (current) drug therapy; Z91.048 Other nonmedicinal substance allergy status; Z71.6 Tobacco abuse counseling
CPT/HCPCS: 96374; 99285; 36415; 93005; 93306; 85379; 80061; 80053; 83735; 84484; 85025; 85610; 85730; 71046; G0378 ×3; J0360